=== PATIENT | female | born 1995 | race Caucasian/White ===

== ENCOUNTER 2023-04-22 18:08 | Emergency (ER) | payer OTHER, SELFPAY ==
--- NOTE | ~2023-04-22 | XR_ITS ---
EXAMINATION: XR CHEST CLINICAL INFORMATION: Reason for Exam chest tightness COMPARISON: Chest radiograph 07/25/2012 TECHNIQUE: 2 views of the chest FINDINGS: Lines and tubes: Upper abdominal surgical clips. Clear lungs. No pleural effusion. No pneumothorax. Normal cardiomediastinal silhouette. XR/XR chest 2V IMPRESSION: * Clear lungs.
--- NOTE | ~2023-04-22 | CT_ITS ---
EXAMINATION: CT ABDOMEN AND PELVIS WITHOUT CONTRAST CLINICAL INFORMATION: Abdominal pain. Rule out kidney disease. COMPARISON: Ultrasound abdomen 04/24/2015 CT abdomen pelvis without contrast 09/17/2012 TECHNIQUE: Multidetector volumetric imaging was performed from the superior aspect of the liver through the pubic symphysis. Sagittal and coronal reformatted images were obtained on the technologist's workstation. This CT examination was performed using dose optimization techniques as appropriate, variously including the following: *Automated exposure control *Adjustment of mA and/or kV according to patient size (this includes techniques or standardized protocols for targeted exams where dose is matched to indication/reason for exam; i.e. extremities or head) *Use of iterative reconstruction technique DLP: 724 mGy-cm FINDINGS: LUNG BASES: The visualized lung bases are unremarkable. LIVER, GALLBLADDER, AND BILIARY TREE: The liver is normal in size, shape, and attenuation. No focal hepatic lesion or biliary ductal dilatation is present. The gallbladder has been surgically removed. PANCREAS: Unremarkable. SPLEEN: Unremarkable. ADRENAL GLANDS: Unremarkable. KIDNEYS AND URETERS: The kidneys are normal in size, shape, and attenuation. No hydronephrosis, hydroureter, or calculi seen. No perinephric stranding. BLADDER: Unremarkable. GASTROINTESTINAL TRACT: There is moderate scattered stool and gas seen throughout the colon without significant distention. The small bowel loops are normal caliber. Appendix is normal caliber. ABDOMINAL WALL: There is mild skin thickening of the umbilicus but no evidence of hernia. LYMPH NODES: Normal. VASCULAR: Unremarkable. PELVIC VISCERA: The uterus is anteverted and appears unremarkable. It seems left ovary lies on the top of the body of the uterus on sagittal view. No free fluid. OSSEOUS STRUCTURES: Unremarkable. CT/CT abdomen pelvis wo IV con IMPRESSION: 1. No acute intra-abdominal process seen. 2. Mild constipation. 3. No radiopaque urolith or hydroureteronephrosis. . Fleischner guidelines were followed.
[2023-04-22 18:20] VITALS: BP 139/89; PULSE 88; RESP 18; TEMP 36.7; O2SAT 98; BMI 40.2
--- NOTE | 2023-04-22 18:21 | ED_ITS ---
HPI - General Adult General Chief complaint: Abdominal Pain Stated complaint: Stomach pain/diff breathing Time Seen by Provider: 04/22/23 19:55 Source: patient Mode of arrival: ambulatory Limitations: no limitations History of Present Illness HPI narrative: 27-year-old female came in for evaluation of epigastric pain for 2 days pain has been constant, feels like acid reflux, no clear relieving factor or aggravating factor. Normal bowel movement yesterday patient passing flatus. Patient also with history of asthma been having wheezing and tightness of the chest. Related Data Previous Rx's Medication Instructions Recorded nitrofurantoin 100 mg PO Q12H 7 days #14 caps 04/23/23 monohydrate/macrocrystals 100 mg capsule (Macrobid) omeprazole 40 mg capsule,delayed 40 mg PO DAILY #20 caps 04/23/23 release Allergies Allergy/AdvReac Type Severity Reaction Status Date / Time amoxicillin [AMOXICILLIN] Allergy Unknown RASH Verified 04/22/23 22:12 Penicillins [PENICILLINS] Allergy Unknown RASH Verified 04/22/23 22:12 acetaminophen [From Percocet] AdvReac Hallucinati Verified 04/22/23 18:23 ons clindamycin AdvReac Rash Verified 04/22/23 18:23 oxycodone [From Percocet] AdvReac Hallucinati Verified 04/22/23 18:23 ons Review of Systems Review of Systems: All other systems are reviewed and are negative Constitutional: Reports as per HPI and Reports no additional constitutional complaints Eyes: Reports as per HPI and Reports no additional eye complaints Reports system reviewed and no additional complaints, except as documented Cardiovascular: Reports as per HPI and Reports no additional cardiovascular complaints Respiratory: Reports as per HPI and Reports no additional respiratory complaints Gastrointestinal: Reports as per HPI and Reports no additional gastrointestinal complaints Genitourinary: Reports no additional female genitourinary complaints Musculoskeletal: Reports no additional musculoskeletal complaints Skin/Breast: Reports system reviewed and no additional complaints, except as docu Psychiatric: Reports no additional psychiatric complaints Endocrine: Reports no additional endocrine complaints Hematologic/Lymphatic: Reports no additional hematologic/lymphatic complaints Allergic/Immunologic: Reports no additional allergic/immunologic complaints Reports system reviewed and no additional complaints, except as documented and Reports Abnormal speech present [facility] Social History Social History Advance Directives: No Advance Directives Information Provided: No Patient : No Physical Exam ED Vital Signs: Vital Signs - 24 hr 04/22/23 18:20 04/22/23 19:55 04/22/23 22:11 Temperature 98.0 F Pulse Rate 88 79 Respiratory Rate 18 18 19 Blood Pressure 139/89 142/90 H Pulse Oximetry 98 98 Oxygen Delivery Method Room Air 04/22/23 22:34 Temperature Pulse Rate 100 Respiratory Rate 16 Blood Pressure 131/79 Pulse Oximetry 99 Oxygen Delivery Method Room Air BMI result Body Mass Index 40.2 Vital signs have been reviewed as appeared to be correct. Blood pressure normal. Heart rate normal. Respiration rate normal. Temperature normal. Oxygen saturation normal. Appearance: Alert. Oriented X3. No acute distress. Head: Normal external exam. Normocephalic. Atraumatic. No Hall signs noted. No raccoon eyes noted Eyes: PERRLA. EOMI. Conjunctiva and sclera normal. Eyelids normal. ENT: TM's Normal. Pharynx normal. Uvula midline. Moist mucous membranes. No trismus noted. No drooling noted. No muffled voice noted. Neck: Normal inspection. Neck supple. FROM. No adenopathy. Thyroid Normal. No meningeal signs. No neck mass noted. CVS: Normal heart rate and rhythm. Heart sound normal. No murmurs noted. Pulses normal throughout. Respiratory: No respiratory distress. Painless inspiration. Breath sounds normal. Mild diffuse expiratory wheezing with prolonged expiration. Chest nontender. No accessory muscle usage noted or decreased air movement noted. Abdomen: Soft, mild epigastric tenderness, no rebound tenderness, no guarding. Bowel sounds normal in all 4 quadrants. No distention noted. No organomegaly noted. No visible injury noted. Back: No CVA tenderness. Full range of motion noted. Skin: Skin warm and dry. Normal skin color. Normal skin turgor. No rashes/lesions/lacerations noted. Extremities: No lower extremity edema. Extremities exhibit normal range of motion. Extremities nontender. Neuro: Oriented X 3. Cranial nerve exam: II-XII are grossly intact No motor deficit. No sensory deficit. Reflexes normal. Course Course Course Narrative: This is an RME: Additional HPI, ROS, PE not included below will be deferred to primary provider. This is a [id number]-female, with a history of asthma, presenting to the emergency department with complaints of epigastric pain x 2 days. No fevers or chills. Also endorsing chest tightness and epigastric tenderness is making her asthma exacerbated. +SOB. VSS Plan: Labs, EKG, CXR ordered Reevaluation(s) Reevaluation #1: Will discharge the patient on Macrobid for UTI, Prilosec for gastritis. Medications Administered Discontinued Medications Generic Name Dose Route Start Last Admin Trade Name Freq PRN Reason Stop Dose Admin Al Hydroxide/Mg Hydroxide 30 ml 04/22/23 20:07 04/22/23 20:37 Magnesium Hydrox/Alum Hydrox 30 Ml Oral.Susp PO 04/22/23 20:08 30 ml ONCE ONE Administration Albuterol Sulfate 5 mg 04/22/23 20:06 04/22/23 20:48 Albuterol Sulfate (0.083%) 2.5 Mg/3 Ml Vial.Neb INHALE 04/22/23 20:07 5 mg ONCE ONE Administration Albuterol/Ipratropium 3 ml 04/22/23 20:06 04/22/23 20:48 Albuterol/Iprat 2.5/0.5mg 3 Ml Ampul.Neb INHALE 04/22/23 20:07 3 ml ONCE ONE Administration Famotidine 20 mg 04/22/23 20:07 04/22/23 20:37 Famotidine/Pf 20 Mg/2 Ml Vial IVPUSH 04/22/23 20:08 20 mg ONCE ONE Administration Sodium Chloride 1,000 mls @ 999 mls/hr 04/22/23 20:08 04/22/23 22:00 Ns IV 04/22/23 21:08 Infused .Q1H1M ONE Infusion Morphine Sulfate 1 mg 04/22/23 22:04 04/22/23 22:11 Morphine Sulfate 2 Mg/Ml Cartridge IVPUSH 04/22/23 22:05 1 mg ONCE ONE Administration Protocol Nitrofurantoin Macrocrystals 100 mg 04/23/23 00:23 04/23/23 00:29 Nitrofurantoin Monohyd/M-Cryst 100 Mg Capsule PO 04/23/23 00:24 100 mg ONCE ONE Administration Medical Decision Making Differential Diagnosis Differential Diagnoses: The differential diagnosis associated with the presentation includes (Asthma, gastritis, colitis, diverticulitis, appendicitis, electrolyte abnormalities, severe dehydration, severe anemia.) Admission/Observation Consideration of admission/observation: Escalation of care including admission/observation considered Lab Data MDM Lab Attestation statement: I reviewed the patient's lab results. 04/22/23 19:07 04/22/23 19:07 Labs: Lab Results 04/22/23 04/22/23 04/22/23 Range/Units 19:07 19:07 19:07 WBC 9.6 (4.8-10.8) X10*3/uL RBC 4.89 (4.20-5.50) X10*6/uL Hgb 14.1 (12.0-16.0) g/dl Hct 40.8 (37.0-47.0) % MCV 83.4 (80.0-98.0) fL MCH 28.8 (27.0-33.0) pg MCHC 34.6 (31.0-35.0) g/dl RDW 13.2 (11.0-16.0) % Plt Count 344 (160-400) X10*3/uL MPV 9.0 L (9.4-12.3) fL Immature Gran % (Auto) 0.5 H (0.0-0.4) % Neut % (Auto) 48.7 (45-73) % Lymph % (Auto) 38.9 (20-40) % [place] % (Auto) 8.5 (2-11) % Eos % (Auto) 2.4 (0-4) % Baso % (Auto) 1.0 (0-2) % Lymph # (Auto) 3.8 (1.2-4.9) X10*3/uL [place] # (Auto) 0.8 (0.1-1.2) X10*3/uL Eos # (Auto) 0.2 (0.0-0.4) X10*3/uL Baso # (Auto) 0.1 (0.0-0.2) X10*3/uL Abs Immat Gran (auto) 0.05 H (0.00-0.03) X10*3/uL Absolute Neuts (auto) 4.7 (2.0-8.3) x10*3/uL Absolute Nucleated RBC 0.000 (0.0-0.012) X10*3/uL Nucleated RBC % (auto) 0.0 (0.0-0.2) /100WBC Sodium 139 (135-145) mmol/L Potassium 3.7 (3.3-5.1) mmol/L Chloride 107 (96-108) mmol/L Carbon Dioxide 24 (22-29) mmol/L Anion Gap 12 (12-20) BUN 11 (9-16) mg/dL Creatinine 0.72 (0.5-1.4) mg/dL Estim Creat Clear Calc 112.9 Estimated GFR > 60 Random Glucose 85 (60-115) mg/dL Calcium 8.9 (8.4-10.2) mg/dL Total Bilirubin 0.5 (0.0-1.0) mg/dL Direct Bilirubin 0.1 (0.0-0.5) mg/dL AST 19 (5-31) U/L ALT 22 (0-31) U/L Alkaline Phosphatase 68 (39-117) U/L Troponin I High Sens < 2.7 (<3.5-17.0) ng/L Total Protein 7.6 (6.5-8.0) g/dL Albumin 4.3 (3.5-5.0) g/dL Lipase 14 (8-78) U/L Urine Color Urine Appearance Urine pH (5.0-9.0) Ur Specific [place] (1.005-1.025) Urine Protein (Neg-Trace) mg/dL Urine Glucose (UA) (Negative) mg/dL Urine Ketones (Negative) mg/dL Urine Blood (Negative) Urine Nitrite (Negative) Ur Leukocyte Esterase (Negative) Urine RBC (0-2) /HPF Urine WBC (0-5) /HPF Ur Squamous Epith Cells (0-2) /HPF Urine Bacteria (None Seen) Hyaline Casts (0-2) /LPF Urine Test (NEGATIVE) 04/22/23 04/22/23 Range/Units 20:01 20:01 WBC (4.8-10.8) X10*3/uL RBC (4.20-5.50) X10*6/uL Hgb (12.0-16.0) g/dl Hct (37.0-47.0) % MCV (80.0-98.0) fL MCH (27.0-33.0) pg MCHC (31.0-35.0) g/dl RDW (11.0-16.0) % Plt Count (160-400) X10*3/uL MPV (9.4-12.3) fL Immature Gran % (Auto) (0.0-0.4) % Neut % (Auto) (45-73) % Lymph % (Auto) (20-40) % [place] % (Auto) (2-11) % Eos % (Auto) (0-4) % Baso % (Auto) (0-2) % Lymph # (Auto) (1.2-4.9) X10*3/uL [place] # (Auto) (0.1-1.2) X10*3/uL Eos # (Auto) (0.0-0.4) X10*3/uL Baso # (Auto) (0.0-0.2) X10*3/uL Abs Immat Gran (auto) (0.00-0.03) X10*3/uL Absolute Neuts (auto) (2.0-8.3) x10*3/uL Absolute Nucleated RBC (0.0-0.012) X10*3/uL Nucleated RBC % (auto) (0.0-0.2) /100WBC Sodium (135-145) mmol/L Potassium (3.3-5.1) mmol/L Chloride (96-108) mmol/L Carbon Dioxide (22-29) mmol/L Anion Gap (12-20) BUN (9-16) mg/dL Creatinine (0.5-1.4) mg/dL Estim Creat Clear Calc Estimated GFR Random Glucose (60-115) mg/dL Calcium (8.4-10.2) mg/dL Total Bilirubin (0.0-1.0) mg/dL Direct Bilirubin (0.0-0.5) mg/dL AST (5-31) U/L ALT (0-31) U/L Alkaline Phosphatase (39-117) U/L Troponin I High Sens (<3.5-17.0) ng/L Total Protein (6.5-8.0) g/dL Albumin (3.5-5.0) g/dL Lipase (8-78) U/L Urine Color Yellow Urine Appearance Clear Urine pH 6.0 (5.0-9.0) Ur Specific [place] 1.025 (1.005-1.025) Urine Protein Trace (Neg-Trace) mg/dL Urine Glucose (UA) Negative (Negative) mg/dL Urine Ketones Negative (Negative) mg/dL Urine Blood Moderate (2+) H (Negative) Urine Nitrite Negative (Negative) Ur Leukocyte Esterase Negative (Negative) Urine RBC 0-2 (0-2) /HPF Urine WBC 6-10 H (0-5) /HPF Ur Squamous Epith Cells 11-20 (0-2) /HPF Urine Bacteria 2+ (None Seen) Hyaline Casts 0-2 (0-2) /LPF Urine Test NEGATIVE (NEGATIVE) Independent Interpretation I performed an independent interpretation of an: Plain X-Ray (Chest: Clear lungs.) and CT Scan (Abdomen pelvis:1. No acute intra-abdominal process seen. 2. Mild constipation. 3. No radiopaque urolith or hydroureteronephrosis. . ) Radiology Impression Discussion of test interpretation with radiology: I have reviewed the radiologist's reading. Discharge Plan Discharge Clinical Impression: Gastritis, UTI (urinary tract infection), Asthma attack, Abdominal pain Patient Disposition: Home, Self-Care Instructions: Gastritis (ED), Urinary Tract Infection in Women (ED) Prescriptions: New nitrofurantoin monohyd/m-cryst [Macrobid] 100 mg capsule 100 mg PO Q12H 7 Days Qty: 14 0RF Rx Instructions: must administer with a meal/food omeprazole 40 mg capsule,delayed release(DR/EC) 40 mg PO DAILY Qty: 20 0RF Stand Alone Forms: Work/School Release Interventions: ED Discharge Assessment Last Done: 04/23/23 00:35 Discharge Date/Time: 04/23/23 00:35
--- NOTE | 2023-04-22 18:53 | ECG_ITS ---
Test Reason : CHEST PAIN Blood Pressure : / mmHG Vent. Rate : 086 BPM Atrial Rate : 086 BPM P-R Int : 132 ms QRS Dur : 078 ms QT Int : 368 ms P-R-T Axes : 028 -02 017 degrees QTc Int : 440 ms Normal sinus rhythm Minimal voltage criteria for LVH, may be normal variant ( R in aVL ) Septal infarct , age undetermined Abnormal ECG When compared with ECG of 09-JAN-2016 21:44, Septal infarct is now Present Referred By: Kassidy Torrez Electronically Signed By:LOUIS JOY
--- NOTE | 2023-04-22 19:16 | MHC.EDTECH ---
charting error disreguard boaz ekg 18:29 RN aware
[2023-04-22 19:20] LABS: MANUAL DIFF FLAG NO
[2023-04-22 19:22] LABS: Basophils Absolute Auto 0.1 X10*3/uL (0.0-0.2); Eosinophils Absolute Auto 0.2 X10*3/uL (0.0-0.4); Eosinophils Percent Auto 2.4 % (0-4); Hematocrit 40.8 % (37.0-47.0); Hemoglobin 14.1 g/dl (12.0-16.0); Imm Gran Abs Auto 0.05 X10*3/uL (0.00-0.03); Imm Gran Pct Auto 0.5 % (0.0-0.4); Lymphocytes Absolute Auto 3.8 X10*3/uL (1.2-4.9); Lymphocytes Percent Auto 38.9 % (20-40); Mean Corpuscular HGB Conc 34.6 g/dl (31.0-35.0); Mean Corpuscular Hemoglobin 28.8 pg (27.0-33.0); Mean Corpuscular Volume 83.4 fL (80.0-98.0); Monocytes Absolute Auto 0.8 X10*3/uL (0.1-1.2); Monocytes Percent Auto 8.5 % (2-11); Neutrophils Absolute Auto 4.7 x10*3/uL (2.0-8.3); Neutrophils Percent Auto 48.7 % (45-73); Platelet Count 344 X10*3/uL (160-400); Red Blood Count 4.89 X10*6/uL (4.20-5.50); Red Cell Distribution Width 13.2 % (11.0-16.0); White Blood Count 9.6 X10*3/uL (4.8-10.8)
[2023-04-22 19:36] LABS: Alanine Aminotransferase 22 U/L (0-31); Albumin Level 4.3 g/dL (3.5-5.0); Alkaline Phosphatase 68 U/L (39-117); Anion Gap 12 (12-20); Aspartate Amino Transferase 19 U/L (5-31); Bilirubin Direct 0.1 mg/dL (0.0-0.5); Bilirubin Total 0.5 mg/dL (0.0-1.0); Blood Urea Nitrogen 11 mg/dL (9-16); Calcium 8.9 mg/dL (8.4-10.2); Carbon Dioxide 24 mmol/L (22-29); Chloride 107 mmol/L (96-108); Creatinine Clr Calc Pharmacy 112.9; Estimated Glomerular Filt Rate > 60; Glucose Random 85 mg/dL (60-115); Lipase 14 U/L (8-78); Potassium 3.7 mmol/L (3.3-5.1); Sodium 139 mmol/L (135-145); Total Protein 7.6 g/dL (6.5-8.0)
[2023-04-22 19:45] LABS: Troponin-I High Sensitivity < 2.7 ng/L (<3.5-17.0)
[2023-04-22 19:55] VITALS: BP 142/90; PULSE 79; RESP 18; O2SAT 98
[2023-04-22 20:22] LABS: Appearance Urine Clear; Color Urine Yellow; Glucose Urine UA Negative (Negative); Leukocyte Esterase Urine Negative (Negative); Nitrite Urine Negative (Negative); Specific Gravity - Urine 1.025 (1.005-1.025); UMIC TRIGGER UACC YES; Urine Blood Moderate (2+) (Negative); Urine Ketones Negative (Negative); Urine Protein Trace mg/dL (Neg-Trace)
[2023-04-22 20:28] LABS: Bacteria Urine 2+ (None Seen); Hyaline Casts Urine 0-2 /LPF (0-2); RBC Urine 0-2 /HPF (0-2); UACC Culture Trigger YES
[2023-04-22] MEDS: Famotidine/PF 20 MG/2 ML VIAL IVPUSH (20:37)
[2023-04-22] MEDS: Magnesium Hydrox/Alum Hydrox 30 ML ORAL.SUSP PO (20:37)
[2023-04-22] MEDS: 0.9 % Sodium Chloride 1,000 ML 999 ML IV (20:38)
[2023-04-22] MEDS: Albuterol Sulfate (0.083%) 2.5 MG/3 ML VIAL.NEB 5 MG INHALE (20:48)
[2023-04-22] MEDS: Albuterol/Iprat 2.5/0.5MG 3 ML AMPUL.NEB INHALE (20:48)
[2023-04-22 21:23] LABS: UPreg QC Valid YES; Urine Pregnancy NEGATIVE (NEGATIVE)
[2023-04-22 22:11] VITALS: RESP 19
[2023-04-22] MEDS: Morphine Sulfate 2 MG/ML CARTRIDGE 1 MG IVPUSH (22:11)
[2023-04-22 22:34] VITALS: BP 131/79; PULSE 100; RESP 16; O2SAT 99
[2023-04-23] MEDS: Nitrofurantoin Monohyd/M-Cryst 100 MG CAPSULE PO (00:29)
== END 2023-04-23 00:35 | disposition home or self-care (01) ==
PROVIDERS: Physician Assistant Medical; Emergency Provider Emergency Medicine; PCP Nurse Practitioner Family
DX: K29.70 Gastritis, unspecified, without bleeding (principal); N39.0 Urinary tract infection, site not specified; J45.909 Unspecified asthma, uncomplicated; R10.13 Epigastric pain
CPT/HCPCS: 36415; 71046; 74176; 80048; 80076; 81001; 81025; 83690; 84484; 85025; 87086; 93005; 96361; 96374; 96375; 99284; 99285; J2270

== ENCOUNTER 2023-07-11 22:01 | Emergency (ER) | payer OTHER, SELFPAY ==
[2023-07-11 22:10] VITALS: BP 133/80; PULSE 99; RESP 18; TEMP 36.7; O2SAT 100; BMI 41.1
[2023-07-11 22:40] LABS: IDNOW Serial# 08D9AD1C; Strep A Nucleic Acid Negative (Negative)
[2023-07-11 22:41] LABS: COVID-19 Test Negative (Negative); IDNOW Serial# BCCEAD1C
--- NOTE | 2023-07-11 23:04 | ED.GENADULT ---
HPI - General Adult General Chief complaint: General Medical Stated complaint: throat pain Time Seen by Provider: 07/11/23 22:46 Source: patient Mode of arrival: ambulatory Limitations: no limitations History of Present Illness HPI narrative: Patient having sore throat since yesterday pain to swallow noticed swelling of the left side of the face also no fever no chills no dental problem patient was diagnosed with strep throat 1 month ago and took antibiotics Related Data Previous Rx's Medication Instructions Recorded nitrofurantoin 100 mg PO Q12H 7 days #14 caps 04/23/23 monohydrate/macrocrystals 100 mg capsule (Macrobid) omeprazole 40 mg capsule,delayed 40 mg PO DAILY #20 caps 04/23/23 release cefuroxime axetil 500 mg tablet 500 mg PO BID 7 days #14 tabs 07/11/23 ibuprofen 600 mg tablet 600 mg PO Q6H PRN fever or pain 07/11/23 #30 tabs Allergies Allergy/AdvReac Type Severity Reaction Status Date / Time amoxicillin [AMOXICILLIN] Allergy Unknown RASH Verified 07/11/23 22:10 Penicillins [PENICILLINS] Allergy Unknown RASH Verified 07/11/23 22:10 clindamycin AdvReac Rash Verified 07/11/23 22:10 oxycodone [From Percocet] AdvReac Hallucinati Verified 07/11/23 22:10 ons Review of Systems Review of Systems: Yes all other systems are reviewed and are negative [facility] Social History Social History Advance Directives: No Advance Directives Information Provided: No Physical Exam ED Vital Signs: Vital Signs - 24 hr 07/11/23 22:10 Temperature 98.1 F Pulse Rate 99 Respiratory Rate 18 Blood Pressure 133/80 Pulse Oximetry 100 Oxygen Delivery Method Room Air BMI result Body Mass Index 41.1 Appearance: Alert. Oriented X3. No acute distress. ENT: Pharynx slightly erythematous no exudates tonsils normal. Oral Mucosa moist no sinus tenderness tympanic membrane intact Neck: Normal inspection. Neck supple. CVS: Normal heart rate and rhythm. Pulses normal. Respiratory: No respiratory distress. Equal air entry bilateral, no wheezing/rales/rhonchi Abdomen: Soft and nontender. Medications Administered Discontinued Medications Generic Name Dose Route Start Last Admin Trade Name Freq PRN Reason Stop Dose Admin Cefuroxime Axetil 500 mg 07/11/23 22:59 07/11/23 23:09 Cefuroxime Axetil 500 Mg Tablet PO 07/11/23 23:00 500 mg ONCE ONE Administration Ibuprofen 600 mg 07/11/23 23:00 07/11/23 23:09 Ibuprofen 600 Mg Tablet PO 07/11/23 23:01 600 mg ONCE ONE Administration Medical Decision Making Lab Data MDM Lab Attestation statement: I reviewed the patient's lab results. Labs: Lab Results 07/11/23 Range/Units 22:16 COVID-19 ([facility]) Negative (Negative) COVID-19 Clin Com See Note S. pyogenes GrpA JASON Negative (Negative) Discharge Plan Discharge Clinical Impression: Acute pharyngitis Patient Disposition: Home, Self-Care Instructions: Pharyngitis (ED) Additional Instructions: Saline gargles as advised Antibiotic as adv Ibuprofen for pain Follow-up with PCP as needed Prescriptions: New ibuprofen 600 mg tablet 600 mg PO Q6H PRN (Reason: fever or pain) Qty: 30 0RF cefuroxime axetil 500 mg tablet 500 mg PO BID 7 Days Qty: 14 0RF No Action nitrofurantoin monohyd/m-cryst [Macrobid] 100 mg capsule 100 mg PO Q12H 7 Days Qty: 14 0RF Rx Instructions: must administer with a meal/food omeprazole 40 mg capsule,delayed release(DR/EC) 40 mg PO DAILY Qty: 20 0RF Stand Alone Forms: Work/School Release Interventions: ED Discharge Assessment Last Done: 07/11/23 23:17 Discharge Date/Time: 07/11/23 23:17
[2023-07-11] MEDS: Ibuprofen 600 MG TABLET PO (23:09)
--- NOTE | 2023-07-11 23:10 | PC.NURSE ---
ptmedicated per mar
== END 2023-07-11 23:17 | disposition home or self-care (01) ==
PROVIDERS: Emergency Provider Internal Medicine; PCP Nurse Practitioner Family
DX: J02.9 Acute pharyngitis, unspecified (principal); Z20.822 Contact with and (suspected) exposure to COVID-19; Z20.828 Contact with and (suspected) exposure to other viral communicable diseases; Z79.899 Other long term (current) drug therapy
CPT/HCPCS: 87635; 87651; 99283

== ENCOUNTER 2023-10-12 14:33 | Emergency (ER) | payer MEDICAID, OTHER, SELFPAY ==
--- NOTE | ~2023-10-12 | XR_ITS ---
EXAMINATION: XR CHEST 4:25 PM CLINICAL INFORMATION: Chest pain COMPARISON: 04/22/2023 TECHNIQUE: Frontal view of the chest was obtained. FINDINGS: No significant abnormality is noted involving the heart, lungs, mediastinum, bony thorax or soft tissues. XR/XR chest 1V IMPRESSION: Unremarkable examination.
--- NOTE | 2023-10-12 14:38 | ECG_ITS ---
Test Reason : cp,dizzy Blood Pressure : / mmHG Vent. Rate : 104 BPM Atrial Rate : 104 BPM P-R Int : 132 ms QRS Dur : 080 ms QT Int : 332 ms P-R-T Axes : 055 -05 015 degrees QTc Int : 436 ms Sinus tachycardia Minimal voltage criteria for LVH, may be normal variant ( R in aVL ) Borderline ECG When compared with ECG of 22-APR-2023 18:56, Criteria for Septal infarct are no longer Present Referred By: Generic ED Physician Electronically Signed By:Tobias Liu
[2023-10-12 15:17] VITALS: BP 117/82; PULSE 112; RESP 18; TEMP 36.9; O2SAT 97; BMI 41.2
--- NOTE | 2023-10-12 15:17 | ED_ITS ---
HPI - Chest Pain General Chief Complaint: Nausea/Vomiting/Diarrhea Stated Complaint: Chest pain, dizziness, vomiting Time Seen by Provider: 10/12/23 22:50 History of Present Illness HPI narrative: The patient says that she has had some mild dizziness for the last week. She went to see her PCP a week ago but no particular diagnosis was made. The patient says she has had vertigo in the past. Patient says that last night around midnight she woke up and felt quite dizzy. She went to the bathroom and felt very dizzy. She then had projectile vomiting and diarrhea. She continued to feel unwell throughout the night and today. Ultimately she went to an urgent care today and was referred to the emergency room. The patient says that she has had a history of rapid heart rate since having COVID. The patient has a Nexplanon device. Related Data Previous Rx's Medication Instructions Recorded nitrofurantoin 100 mg PO Q12H 7 days #14 caps 04/23/23 monohydrate/macrocrystals 100 mg capsule (Macrobid) omeprazole 40 mg capsule,delayed 40 mg PO DAILY #20 caps 04/23/23 release cefuroxime axetil 500 mg tablet 500 mg PO BID 7 days #14 tabs 07/11/23 ibuprofen 600 mg tablet 600 mg PO Q6H PRN fever or pain 07/11/23 #30 tabs ibuprofen 600 mg tablet 600 mg PO Q6H PRN pain #14 tabs 10/13/23 meclizine 25 mg tablet 25 mg PO TID PRN dizziness #14 tabs 10/13/23 Allergies Allergy/AdvReac Type Severity Reaction Status Date / Time amoxicillin [AMOXICILLIN] Allergy Unknown RASH Verified 10/12/23 15:17 Penicillins [PENICILLINS] Allergy Unknown RASH Verified 10/12/23 15:17 clindamycin AdvReac Rash Verified 10/12/23 15:17 oxycodone [From Percocet] AdvReac Hallucinati Verified 10/12/23 15:17 ons Review of Systems 2 Review of Systems: Yes all other systems are reviewed and are negative [facility] Social History Social History Smoked in Last 30 Days: No Use of substances other than those prescribed or required for medical reasons: No Advance Directives: No Advance Directives Information Provided: No Patient : No Physical Exam 2 Vital Signs: Vital Signs: Last Vital Signs Temp 98.6 F 10/13/23 04:16 Pulse 96 10/13/23 07:47 Resp 16 10/13/23 07:47 BP 124/68 10/13/23 07:47 Pulse Ox 98 10/13/23 07:47 O2 Del Method Room Air 10/13/23 07:47 BMI result Body Mass Index 41.2 Const: Other: The patient is awake and alert. The patient does not appear obviously acutely ill or toxic. HEENT: Other: Face is symmetrical. Mucous membranes moist. Eyes: Other: Pupils are round equal, extraocular movements are intact. No clear nystagmus. Neck: Other: Neck is supple. No masses. Resp: Other: Breath sounds are clear bilaterally. No increased work of breathing. Cardio: Other: The patient has regular rate and rhythm with no murmur Skin: Other: Skin is dry and unremarkable Neuro: Other: The patient is awake and alert, oriented and appropriate. Eye movements are normal. No clear nystagmus. Face is symmetrical. Speech is clear. Finger- nose is normal. Moving all 4 extremities normally. She seems grossly neurologically intact Extrem: Other: No calf swelling or tenderness. No peripheral edema Course Course Course Narrative: RME: 27yo F w/no sig PMHx c/o LICEA x1 week with bilateral cerumen impaction noted by PCP, and now w/lightheadedness/dizziness, CP x yesterday w/assoc N/V and syncopal episode in shower. Denies head trauma. Also reports diarrhea. +sick contacts EKH, Labs, UA, Viral testing Full HPI, ROS and PE to be performed by primary ED provider. Medications Administered Discontinued Medications Generic Name Dose Route Start Last Admin Trade Name Freq PRN Reason Stop Dose Admin Diphenhydramine HCl 25 mg 10/12/23 23:02 10/13/23 00:46 Diphenhydramine Hcl 50 Mg/Ml Vial IVPUSH 10/12/23 23:03 25 mg ONCE ONE Administration Sodium Chloride 1,000 mls @ 999 mls/hr 10/12/23 23:15 10/13/23 01:50 Ns IV 10/13/23 00:15 Infused .Q1H1M ALICIA Infusion Sodium Chloride 1,000 mls @ 999 mls/hr 10/13/23 01:45 10/13/23 02:55 Ns IV 10/13/23 02:45 Infused .Q1H1M ALICIA Infusion Ketorolac Tromethamine 15 mg 10/13/23 07:01 10/13/23 07:55 Ketorolac Tromethamine 15 Mg/Ml Vial IVPUSH 10/13/23 07:02 15 mg ONCE ONE Administration Medical Decision Making Medical Decision Making MDM Narrative: Patient presents with an episode of dizziness that was also associated with vomiting and diarrhea. She reports a history of vertigo in the past. Her neurological exam is unremarkable. No clear nystagmus. She was treated with IV diphenhydramine and IV fluids. She fell asleep for a long time. When she woke up her dizziness was better but she was complaining of a headache. She was like. I think she may be discharged. She should follow up with the regular doctor. She was prescribed meclizine. Lab Data 10/12/23 15:38 10/12/23 15:38 Labs: Lab Results 10/12/23 10/12/23 Range/Units 15:38 22:39 WBC 9.5 (4.8-10.8) X10*3/uL RBC 4.89 (4.20-5.50) X10*6/uL Hgb 15.0 (12.0-16.0) g/dl Hct 42.7 (37.0-47.0) % MCV 87.3 (80.0-98.0) fL MCH 30.7 (27.0-33.0) pg MCHC 35.1 H (31.0-35.0) g/dl RDW 12.2 (11.0-16.0) % Plt Count 279 (160-400) X10*3/uL MPV 9.0 L (9.4-12.3) fL Immature Gran % (Auto) 0.4 (0.0-0.4) % Neut % (Auto) 80.8 H (45-73) % Lymph % (Auto) 11.0 L (20-40) % [place] % (Auto) 7.2 (2-11) % Eos % (Auto) 0.4 (0-4) % Baso % (Auto) 0.2 (0-2) % Lymph # (Auto) 1.1 L (1.2-4.9) X10*3/uL [place] # (Auto) 0.7 (0.1-1.2) X10*3/uL Eos # (Auto) 0.0 (0.0-0.4) X10*3/uL Baso # (Auto) 0.0 (0.0-0.2) X10*3/uL Abs Immat Gran (auto) 0.04 H (0.00-0.03) X10*3/uL Absolute Neuts (auto) 7.7 (2.0-8.3) x10*3/uL Absolute Nucleated RBC 0.000 (0.0-0.012) X10*3/uL Nucleated RBC % (auto) 0.0 (0.0-0.2) /100WBC Sodium 137 (135-145) mmol/L Potassium 3.5 (3.3-5.1) mmol/L Chloride 104 (96-108) mmol/L Carbon Dioxide 24 (22-29) mmol/L Anion Gap 13 (12-20) BUN 11 (9-16) mg/dL Creatinine 0.74 (0.5-1.4) mg/dL Estim Creat Clear Calc 111.4 Estimated GFR > 60 Random Glucose 87 (60-115) mg/dL Calcium 9.3 (8.4-10.2) mg/dL Magnesium 1.9 (1.6-2.6) mg/dL Total Bilirubin 1.1 H (0.0-1.0) mg/dL Direct Bilirubin 0.3 (0.0-0.5) mg/dL AST 17 (5-31) U/L ALT 18 (0-31) U/L Alkaline Phosphatase 61 (39-117) U/L Troponin I High Sens < 2.7 (<3.5-17.0) ng/L C-Reactive Protein 2.69 H (< or = 0.50) mg/dL Total Protein 7.7 (6.5-8.0) g/dL Albumin 4.4 (3.5-5.0) g/dL Urine Color Dark Yellow Urine Appearance Cloudy Urine pH 5.5 (5.0-9.0) Ur Specific [place] 1.025 (1.005-1.025) Urine Protein Trace (Neg-Trace) mg/dL Urine Glucose (UA) Negative (Negative) mg/dL Urine Ketones 15 (Negative) mg/dL Urine Blood Trace H (Negative) Urine Nitrite Negative (Negative) Ur Leukocyte Esterase Negative (Negative) Urine RBC 11-20 H (0-2) /HPF Urine WBC 0-5 (0-5) /HPF Ur Squamous Epith Cells 11-20 (0-2) /HPF Urine Bacteria Trace (None Seen) Hyaline Casts 0-2 (0-2) /LPF Urine Test NEGATIVE (NEGATIVE) Influenza Type A (PCR) NEGATIVE (Negative) Influenza Type B (PCR) NEGATIVE (Negative) RSV RNA Qual (PCR) NEGATIVE (Negative) SARS-CoV-2 RNA (RT-PCR) NEGATIVE (Negative) S. pyogenes GrpA JASON Negative (Negative) Discharge Plan Discharge Clinical Impression: Dizziness, Headache Patient Disposition: Home, Self-Care Instructions: Dizziness (ED) Additional Instructions: Please rest and take it easy today. I have sent a prescription to your pharmacy for a drug called meclizine which she may use as needed for dizziness. I have also sent a prescription for ibuprofen which you may use for headache. Please follow-up with your regular doctor soon for recheck. Return to the emergency room if you feel significantly worse. Prescriptions: New meclizine 25 mg tablet 25 mg PO TID PRN (Reason: dizziness) Qty: 14 0RF ibuprofen 600 mg tablet 600 mg PO Q6H PRN (Reason: pain) Qty: 14 0RF No Action nitrofurantoin monohyd/m-cryst [Macrobid] 100 mg capsule 100 mg PO Q12H 7 Days Qty: 14 0RF Rx Instructions: must administer with a meal/food omeprazole 40 mg capsule,delayed release(DR/EC) 40 mg PO DAILY Qty: 20 0RF ibuprofen 600 mg tablet 600 mg PO Q6H PRN (Reason: fever or pain) Qty: 30 0RF cefuroxime axetil 500 mg tablet 500 mg PO BID 7 Days Qty: 14 0RF Referrals: Lola Camarena BILLER [Primary Care Provider] - (dizziness ) Stand Alone Forms: Work/School Release Interventions: ED Discharge Assessment Last Done: 10/13/23 08:53 Discharge Date/Time: 10/13/23 08:54
[2023-10-12 15:45] LABS: MANUAL DIFF FLAG NO
[2023-10-12 15:48] LABS: Basophils Percent Auto 0.2 % (0-2); Eosinophils Percent Auto 0.4 % (0-4); Hematocrit 42.7 % (37.0-47.0); Imm Gran Abs Auto 0.04 X10*3/uL (0.00-0.03); Imm Gran Pct Auto 0.4 % (0.0-0.4); Lymphocytes Absolute Auto 1.1 X10*3/uL (1.2-4.9); Mean Corpuscular HGB Conc 35.1 g/dl (31.0-35.0); Mean Corpuscular Hemoglobin 30.7 pg (27.0-33.0); Mean Corpuscular Volume 87.3 fL (80.0-98.0); Monocytes Absolute Auto 0.7 X10*3/uL (0.1-1.2); Monocytes Percent Auto 7.2 % (2-11); Neutrophils Absolute Auto 7.7 x10*3/uL (2.0-8.3); Neutrophils Percent Auto 80.8 % (45-73); Platelet Count 279 X10*3/uL (160-400); Red Blood Count 4.89 X10*6/uL (4.20-5.50); Red Cell Distribution Width 12.2 % (11.0-16.0); White Blood Count 9.5 X10*3/uL (4.8-10.8)
[2023-10-12 16:00] LABS: Alanine Aminotransferase 18 U/L (0-31); Albumin Level 4.4 g/dL (3.5-5.0); Alkaline Phosphatase 61 U/L (39-117); Anion Gap 13 (12-20); Aspartate Amino Transferase 17 U/L (5-31); Bilirubin Direct 0.3 mg/dL (0.0-0.5); Bilirubin Total 1.1 mg/dL (0.0-1.0); Blood Urea Nitrogen 11 mg/dL (9-16); Calcium 9.3 mg/dL (8.4-10.2); Carbon Dioxide 24 mmol/L (22-29); Chloride 104 mmol/L (96-108); Creatinine Clr Calc Pharmacy 111.4; Estimated Glomerular Filt Rate > 60; Glucose Random 87 mg/dL (60-115); IDNOW Serial# 08D9AD1C; Magnesium 1.9 mg/dL (1.6-2.6); Potassium 3.5 mmol/L (3.3-5.1); Sodium 137 mmol/L (135-145); Strep A Nucleic Acid Negative (Negative); Total Protein 7.7 g/dL (6.5-8.0)
[2023-10-12 16:10] LABS: Troponin-I High Sensitivity < 2.7 ng/L (<3.5-17.0)
[2023-10-12 16:23] LABS: Influenza A PCR NEGATIVE (Negative); Influenza B PCR NEGATIVE (Negative); Resp Syncy Virus RNA Qual PCR NEGATIVE (Negative); SARS COV2 PCR INHOUSE NEGATIVE (Negative)
[2023-10-12 22:35] VITALS: BP 109/74; PULSE 103; RESP 18; TEMP 36.9; O2SAT 97
[2023-10-12 22:50] LABS: Appearance Urine Cloudy; Color Urine Dark Yellow; Glucose Urine UA Negative (Negative); Leukocyte Esterase Urine Negative (Negative); Nitrite Urine Negative (Negative); PH 5.5 (5.0-9.0); Specific Gravity - Urine 1.025 (1.005-1.025); UMIC TRIGGER UACC YES; Urine Blood Trace (Negative); Urine Ketones 15 mg/dL (Negative); Urine Protein Trace mg/dL (Neg-Trace)
[2023-10-12 22:53] LABS: UPreg QC Valid YES; Urine Pregnancy NEGATIVE (NEGATIVE)
[2023-10-12 22:55] LABS: Bacteria Urine Trace (None Seen); Hyaline Casts Urine 0-2 /LPF (0-2); WBC Urine 0-5 /HPF (0-5)
[2023-10-12 23:03] LABS: C Reactive Protein 2.69 mg/dL (< or = 0.50)
[2023-10-13] VITALS (8 sets, daily range): BP systolic 102–124; BP diastolic 55–76; PULSE 83–105; RESP 16; TEMP 37; O2SAT 98
[2023-10-13] MEDS: 0.9 % Sodium Chloride 1,000 ML 999 ML IV ×2 (00:46→01:51)
[2023-10-13] MEDS: diphenhydrAMINE HCL 50 MG/ML VIAL 25 MG IVPUSH (00:46)
--- NOTE | 2023-10-13 06:37 | PC.NURSE ---
Pt alert and oriented. endorsing nausea vomiting. IV line placed in right upper arm. IV fluids infused. Plan of care ongoing
[2023-10-13] MEDS: Ketorolac Tromethamine 15 MG/ML VIAL IVPUSH (07:55)
== END 2023-10-13 08:54 | disposition home or self-care (01) ==
PROVIDERS: Physician Assistant; Emergency Provider Emergency Medicine; PCP Nurse Practitioner Family
DX: R51.9 Headache, unspecified (principal); R11.2 Nausea with vomiting, unspecified; R07.89 Other chest pain; R42 Dizziness and giddiness; Z20.822 Contact with and (suspected) exposure to COVID-19; Z20.828 Contact with and (suspected) exposure to other viral communicable diseases; Z79.899 Other long term (current) drug therapy
CPT/HCPCS: 0241U; 71045; 80048; 80076; 81001; 81025; 83735; 84484; 85025; 86140; 87651; 93005; 96361; 96374; 96375; 99285; J1200; J1885

== ENCOUNTER → 2023-10-12 14:38 | Outpatient (BNV) | payer OTHER, SELFPAY | PROVIDERS: Emergency Provider Emergency Medicine; PCP Nurse Practitioner Family; Visit Provider Internal Medicine Cardiovascular Disease | DX: R00.0 Tachycardia, unspecified (principal) | CPT/HCPCS: 93010 ==

== ENCOUNTER 2024-11-05 19:24 | Emergency (ER) | payer OTHER, SELFPAY ==
--- NOTE | ~2024-11-05 | XR_ITS ---
CLINICAL HISTORY: Pneumonia? COughing 1 view chest x-ray. Comparison: CR/SR - XR CHEST 1V - 10/12/23 16:24 EST Findings: The lungs appear clear. There is no consolidation, effusion, or nodule identified. Cardiomediastinal silhouette is within normal limits. IMPRESSION: No acute cardiopulmonary abnormality. This document has been electronically signed by: Nigel Hughes MD on 11/05/2024 20:30:03
[2024-11-05 19:29] VITALS: BP 130/82; PULSE 122; RESP 22; TEMP 37.1; O2SAT 97; BMI 42.1
--- NOTE | 2024-11-05 19:31 | ED_ITS ---
HPI - General Adult General Chief complaint: Dyspnea Stated complaint: Asthma/SOB Time Seen by Provider: 11/05/24 23:25 Source: patient, RN notes reviewed and old records reviewed Mode of arrival: ambulatory Limitations: no limitations History of Present Illness ED Provider: Georgie PAGE narrative: [age] old female with past medical history significant for asthma presents for evaluation of shortness of breath. Patient reports that she was diagnosed with COVID-19 on , about 2 weeks ago. She reports she never really got better after her COVID diagnosis. She states that she is still coughing with production of yellow sputum She endorses chills, malaise. She states that it hurts to take a deep breath She has been using her nebulizers without any improvement No other complaints or concerns at this time Denies any recent travel or leg swelling Related Data Previous Rx's ?Medication ?Instructions ?Recorded nitrofurantoin 100 mg PO Q12H 7 days #14 caps 04/23/23 monohydrate/macrocrystals 100 mg capsule (Macrobid) omeprazole 40 mg capsule,delayed 40 mg PO DAILY #20 caps 04/23/23 release cefuroxime axetil 500 mg tablet 500 mg PO BID 7 days #14 tabs 07/11/23 ibuprofen 600 mg tablet 600 mg PO Q6H PRN fever or pain 07/11/23 #30 tabs ibuprofen 600 mg tablet 600 mg PO Q6H PRN pain #14 tabs 10/13/23 meclizine 25 mg tablet 25 mg PO TID PRN dizziness #14 tabs 10/13/23 azithromycin 250 mg tablet See Rx Instructions PO .COMPLEX #6 11/06/24 tabs prednisone 20 mg tablet 40 mg (2 x 20 mg) PO DAILY #10 tabs 11/06/24 Allergies Allergy/AdvReac Type Severity Reaction Status Date / Time amoxicillin [AMOXICILLIN] Allergy Unknown RASH Verified 11/05/24 19:29 Penicillins [PENICILLINS] Allergy Unknown RASH Verified 11/05/24 19:29 clindamycin AdvReac Rash Verified 11/05/24 19:29 oxycodone [From Percocet] AdvReac Hallucinati Verified 11/05/24 19:29 ons Review of Systems Constitutional: Constitutional: Denies body ache(s), Reports chills, Denies fever(s), Reports malaise and Reports weakness ENT: Denies vertigo, Denies dizziness and Denies sore throat Cardiovascular: Cardiovascular: Denies chest pain and Reports dyspnea Respiratory: Respiratory: Reports cough, Reports pain with cough and Reports dyspnea Gastrointestinal: Gastrointestinal: Denies abdominal pain, Denies nausea and Denies vomiting Musculoskeletal: Musculoskeletal: Denies back pain Integumentary/Breasts: Skin/Breast: Denies rash Neurologic: Denies vertigo, Denies dizziness and Reports weakness Psychiatric: Psychiatric: Denies anxiety PMFSH Social History Social History Advance Directives: No Advance Directives Information Provided: No Physical Exam ED Vital Signs: Vital Signs - 24 hr 11/05/24 19:29 11/05/24 19:58 11/06/24 00:06 Temperature 98.7 F 97.3 F Pulse Rate 122 H 104 H 88 Respiratory Rate 22 H 22 H 16 Blood Pressure 130/82 129/75 Pulse Oximetry 97 98 Oxygen Delivery Method Room Air Room Air 11/06/24 01:17 Temperature 97.3 F Pulse Rate 88 Respiratory Rate 16 Blood Pressure 129/75 Pulse Oximetry 98 Oxygen Delivery Method Room Air BMI result Body Mass Index 42.1 Const General: healthy appearing, comfortable, no acute distress, alert and awake Nutritional Appearance: well nourished Orientation/consciousness: patient oriented x3 HENMT Head: Yes normocephalic and Yes atraumatic Throat: Yes posterior oropharynx normal Eyes Eyelids: Yes eyelids normal Conjunctivae: conjunctivae normal Sclerae: sclerae normal Corneas: corneas normal Pupils: Equal, round and reactive pupils present EOM: EOMs intact bilaterally Neck Neck: Yes full ROM Resp Other: Slightly diminished, but otherwise clear to auscultation without wheezing Effort & Inspection: normal respiratory effort, able to speak in complete sentences, no audible wheezes and not labored Auscultation: clear to auscultation bilaterally Cardio Rate: regular rate Rhythm: regular rhythm GI Inspection: No distended Palpation (GI): Soft to palpation, not firm, nontender, no guarding and not rigid Skin General skin exam: no rashes or lesions noted and elasticity normal Neuro General: patient oriented x3 Cranial nerves: Yes Equal, round and reactive pupils present and Yes Bilaterally intact EOM present Cognition (Neuro): normal cognition Extrem Other: Moving all extremities well without any obvious deformities Course Course Course Narrative: RME: 28-year-old female presents to ED for chest tightness, coughing, shortness of breath or runny nose. Patient recently got over COVID. Today started having chest tightness wheezing coughing and runny nose. Lungs positive for diminished lung sounds. Negative for leg swelling or calf pain. Chest x-ray SARs strep albuterol prednisone ordered Reevaluation(s) Reevaluation #1: Patient tested positive for COVID. She reports that she was positive on and then negative again 2 days ago. We will treat with azithromycin and prednisone as her symptoms have been present for over 2 weeks. Time: 00:53 Medications Administered Discontinued Medications Generic Name Dose Route Start Last Admin Trade Name Freq PRN Reason Stop Dose Admin Albuterol/Ipratropium 3 ml 11/05/24 19:55 11/05/24 19:58 Albuterol/Iprat 2.5/0.5mg 3 Ml Ampul.Neb INHALE 11/05/24 19:56 3 ml ONCE ONE Administration Prednisone 40 mg 11/05/24 19:29 11/05/24 19:36 Prednisone 20 Mg Tablet PO 11/05/24 19:30 40 mg ONCE ONE Administration Medical Decision Making Medical Decision Making MDM Narrative: 28-year-old female presents for evaluation of shortness of breath. Her lungs are clear to auscultation though she had received a nebulizer prior to my evaluation. She appears quite well, she is not hypoxic. Viral swabs and strep swab ordered. Chest x-ray is clear without focal infiltrates. Low suspicion for PE as the patient is PERC negative Differential Diagnosis Differential Diagnoses: The differential diagnosis associated with the presentation includes Acute asthma exacerbation Bronchitis Pneumonia Viral syndrome Upper respiratory infection COVID-19 Lab Data Labs: Lab Results 11/05/24 Range/Units 23:34 Influenza Type A (PCR) NEGATIVE (Negative) Influenza Type B (PCR) NEGATIVE (Negative) RSV RNA Qual (PCR) NEGATIVE (Negative) SARS-CoV-2 RNA (RT-PCR) POSITIVE A (Negative) S. pyogenes GrpA JASON Negative (Negative) Independent Interpretation I performed an independent interpretation of an: Plain X-Ray (Agree with Radiology interpreted) Radiology Impression Discussion of test interpretation with radiology: I have reviewed the radiologist's reading. Radiologist Impression: Findings: The lungs appear clear. There is no consolidation, effusion, or nodule identified. Cardiomediastinal silhouette is within normal limits. IMPRESSION: No acute cardiopulmonary abnormality. This document has been electronically signed by: Nigel Hughes MD on 11/05/2024 20:30:03 Discharge Plan Discharge Clinical Impression: COVID-19, Asthma Patient Disposition: Home, Self-Care Instructions: Asthma (ED), COVID-19 (Coronavirus Disease 2019) (ED) Additional Instructions: Take azithromycin as prescribed Take prednisone 40 mg daily for the next 5 days Use your albuterol inhaler as directed. You tested negative for strep throat but still test positive for COVID-19 Follow-up with your primary doctor, return for new or worsening symptoms Prescriptions: New azithromycin 250 mg tablet See Rx Instructions .ROUTE .COMPLEX Qty: 6 0RF Rx Instructions: For 250 mg dose pack: take 500 mg today (day 1), then 250 mg for 4 days (days 2-5) prednisone 20 mg tablet 40 mg PO DAILY Qty: 10 0RF No Action nitrofurantoin monohyd/m-cryst [Macrobid] 100 mg capsule 100 mg PO Q12H 7 Days Qty: 14 0RF Rx Instructions: must administer with a meal/food omeprazole 40 mg capsule,delayed release(DR/EC) 40 mg PO DAILY Qty: 20 0RF ibuprofen 600 mg tablet 600 mg PO Q6H PRN (Reason: fever or pain) Qty: 30 0RF cefuroxime axetil 500 mg tablet 500 mg PO BID 7 Days Qty: 14 0RF meclizine 25 mg tablet 25 mg PO TID PRN (Reason: dizziness) Qty: 14 0RF ibuprofen 600 mg tablet 600 mg PO Q6H PRN (Reason: pain) Qty: 14 0RF Stand Alone Forms: Work/School Release Interventions: ED Discharge Assessment Last Done: 11/06/24 01:17 Discharge Date/Time: 11/06/24 01:17 Print Language: Hungarian
[2024-11-05] MEDS: predniSONE 20 MG TABLET 40 MG PO (19:36)
[2024-11-05 19:58] VITALS: PULSE 104; RESP 22; O2SAT 99
[2024-11-05] MEDS: Albuterol/Iprat 2.5/0.5MG 3 ML AMPUL.NEB INHALE (19:58)
[2024-11-06 00:02] LABS: IDNOW Serial# 6674DD1D; Strep A Nucleic Acid Negative (Negative)
[2024-11-06 00:06] VITALS: BP 129/75; PULSE 88; RESP 16; TEMP 36.3; O2SAT 98
[2024-11-06 00:36] LABS: Influenza A PCR NEGATIVE (Negative); Influenza B PCR NEGATIVE (Negative); Resp Syncy Virus RNA Qual PCR NEGATIVE (Negative); SARS COV2 PCR INHOUSE POSITIVE (Negative)
[2024-11-06 01:17] VITALS: BP 129/75; PULSE 88; RESP 16; TEMP 36.3; O2SAT 98
== END 2024-11-06 01:17 | disposition home or self-care (01) ==
PROVIDERS: Physician Assistant; Emergency Provider Emergency Medicine Emergency Medical Services; PCP Nurse Practitioner Family
DX: U07.1 COVID-19 (principal); J45.909 Unspecified asthma, uncomplicated; R06.02 Shortness of breath; R53.81 Other malaise; R05.9 Cough, unspecified
CPT/HCPCS: 0241U; 71045; 87651; 94640; 99284

== ENCOUNTER → 2024-11-05 19:29 | Outpatient (BNV) | payer OTHER, SELFPAY | PROVIDERS: PCP Nurse Practitioner Family; Visit Provider Radiology Diagnostic Radiology | DX: R05.1 Acute cough (principal) | CPT/HCPCS: 71045 ==

== ENCOUNTER 2025-07-26 01:24 | Emergency (ER) | payer OTHER, SELFPAY ==
--- NOTE | ~2025-07-26 | XR_ITS ---
CLINICAL HISTORY: Trauma; Pain 3 views right great toe Comparison: None provided Findings: There is soft tissue swelling and there appears to be some irregularity of the toenail of the great toe. There is no fracture or dislocation. Joint spaces appear normal. There is no radiopaque foreign body. Impression: No osseous abnormality. This document has been electronically signed by: Nigel Hughes MD on 07/26/2025 03:26:38
[2025-07-26 01:29] VITALS: BP 125/77; PULSE 91; RESP 16; TEMP 36.3; O2SAT 98; BMI 38.7
--- NOTE | 2025-07-26 01:45 | ED.GENADULT ---
HPI - General Adult General Chief complaint: General Medical Stated complaint: Infection in right toe Time Seen by Provider: 07/26/25 01:45 Source: patient Mode of arrival: ambulatory Limitations: no limitations History of Present Illness ED Provider: Gadiel CARUSO HPI narrative: The patient is a 29-year-old female presenting to the ED for evaluation of pain in her right great toe. Patient reports she recently had acrylic toenails applied to her toes. On Wednesday the patient reports she was drinking alcohol and accidentally stubbed the right great toe on a wall resulting in a lifting injury of the right great toenail. Patient reports since Wednesday she has noticed nail discoloration and a mix of purulent and bloody drainage from beneath and around the toenail with associated pain. The patient reports subjective chills but denies objective fever, denies associated nausea, vomiting, or other systemic complaint. Related Data Previous Rx's ?Medication ?Instructions ?Recorded nitrofurantoin 100 mg PO Q12H 7 days #14 caps 04/23/23 monohydrate/macrocrystals 100 mg capsule (Macrobid) omeprazole 40 mg capsule,delayed 40 mg PO DAILY #20 caps 04/23/23 release cefuroxime axetil 500 mg tablet 500 mg PO BID 7 days #14 tabs 07/11/23 ibuprofen 600 mg tablet 600 mg PO Q6H PRN fever or pain 07/11/23 #30 tabs ibuprofen 600 mg tablet 600 mg PO Q6H PRN pain #14 tabs 10/13/23 meclizine 25 mg tablet 25 mg PO TID PRN dizziness #14 tabs 10/13/23 azithromycin 250 mg tablet See Rx Instructions PO .COMPLEX #6 11/06/24 tabs prednisone 20 mg tablet 40 mg (2 x 20 mg) PO DAILY #10 tabs 11/06/24 cephalexin 500 mg capsule 500 mg PO QID #28 caps 07/26/25 Allergies Allergy/AdvReac Type Severity Reaction Status Date / Time amoxicillin (AMOXICILLIN) Allergy Unknown RASH Verified 07/26/25 01:29 Penicillins (PENICILLINS) Allergy Unknown RASH Verified 07/26/25 01:29 clindamycin AdvReac Rash Verified 07/26/25 01:29 oxycodone (From Percocet) AdvReac Hallucinati Verified 07/26/25 01:29 ons Review of Systems Review of Systems: Yes all other systems are reviewed and are negative PMFSH Social History Social History Smoked in Last 30 Days: No Use of substances other than those prescribed or required for medical reasons: No Advance Directives: No Advance Directives Information Provided: Yes Patient : No Physical Exam ED Vital Signs: Vital Signs - 24 hr 07/26/25 01:29 Temperature 97.4 F Pulse Rate 91 Respiratory Rate 16 Blood Pressure 125/77 Pulse Oximetry 98 Oxygen Delivery Method Room Air BMI result Body Mass Index 38.7 CONSTITUTIONAL: The patient appears non-toxic, well nourished and in no acute distress. Vital signs as documented. HEAD: Atraumatic, normocephalic. EYES: EOMs grossly intact, pupils equal, conjunctiva clear, no exudate. ENT: Nares patent, no discharge. Airway patent, no audible stridor, visible mucosa is pink and moist without noted lesions. NECK: trachea is midline, no obvious masses or gross abnormalities. CHEST: Symmetric movement, normal appearance. LUNGS: Non-labored work of breathing. CARDIAC: No evidence of hypoperfusion. ABDOMEN: Nondistended, no obvious injury. : Deferred. EXTREMITIES: Moves all extremities spontaneously without reported pain. A long acrylic nail is noted attached to the right great toenail. There is erythema noted throughout the distal right great toe. There is purulent drainage noted around the cuticle of the right great toe, without evidence of fluid collection/paronychia, nail is intact and fully within the cuticle however nail is markedly loose and lifts easily from the nail bed, with additional purulent material noted beneath the nail. Distal CSM intact. No other obvious injury or deformity noted. NEURO: Alert and oriented x3, CN II-XII appear grossly intact. Cerebellar Functioning grossly intact. Speech clear and appropriate. SKIN: Warm, dry, color appropriate. No rashes or lesions noted. Medications Administered Discontinued Medications Generic Name Dose Route Start Last Admin Trade Name Freq PRN Reason Stop Dose Admin Acetaminophen 975 mg 07/26/25 02:09 07/26/25 02:32 Acetaminophen 325 Mg Tablet PO 07/26/25 02:10 975 mg ONCE ONE Administration Bacitracin 1 appl 07/26/25 02:09 07/26/25 02:32 Bacitracin Oint 0.9 Gm Packet TOPICAL 07/26/25 02:10 1 appl ONCE ONE Administration Protocol Cephalexin HCl 500 mg 07/26/25 02:07/26/25 02:32 Cephalexin 500 Mg Capsule PO 07/26/25 02:10 500 mg ONCE ONE Administration Ibuprofen 600 mg 07/26/25 02:07/26/25 02:32 Ibuprofen 600 Mg Tablet PO 07/26/25 02:10 600 mg ONCE ONE Administration Medical Decision Making Medical Decision Making [facility] Narrative: 2:04 AM 07/26/2025 (Stephanie CARUSO): The patient is a 29-year-old female presenting to the ED for evaluation of right great toe erythema and pain after suffering a stubbing injury to the right great toenail on Wednesday. Since that time patient has been experiencing swelling, erythema, discoloration, and purulent drainage from the nail bed and cuticle. The patient's exam reveals evidence of cellulitis without obvious paronychia. Full nonpainful range of motion. The patient will be treated with digital block, followed by removal of the acrylic nail to reduce risk of repeat lifting. We will also treat with cephalexin. Admission/Observation Consideration of admission/observation: Escalation of care including admission/observation considered Lab Data [facility] Lab Attestation statement: I reviewed the patient's lab results. 07/26/25 01:46 07/26/25 01:46 Labs: Lab Results 07/26/25 Range/Units 01:46 WBC 11.1 H (4.8-10.8) X10*3/uL RBC 4.53 (4.20-5.50) X10*6/uL Hgb 14.4 (12.0-16.0) g/dl Hct 38.7 (37.0-47.0) % MCV 85.4 (80.0-98.0) fL MCH 31.8 (27.0-33.0) pg MCHC 37.2 H (31.0-35.0) g/dl RDW 12.4 (11.0-16.0) % Plt Count 353 D (160-400) X10*3/uL MPV 8.6 L (9.4-12.3) fL Immature Gran % (Auto) 0.4 (0.0-0.4) % Neut % (Auto) 57.8 (45-73) % Lymph % (Auto) 30.5 (20-40) % [place] % (Auto) 7.7 (2-11) % Eos % (Auto) 3.0 (0-4) % Baso % (Auto) 0.6 (0-2) % Lymph # (Auto) 3.4 (1.2-4.9) X10*3/uL [place] # (Auto) 0.9 (0.1-1.2) X10*3/uL Eos # (Auto) 0.3 (0.0-0.4) X10*3/uL Baso # (Auto) 0.1 (0.0-0.2) X10*3/uL Abs Immat Gran (auto) 0.04 H (0.00-0.03) X10*3/uL Absolute Neuts (auto) 6.4 (2.0-8.3) x10*3/uL Absolute Nucleated RBC 0.000 (0.0-0.012) X10*3/uL Nucleated RBC % (auto) 0.0 (0.0-0.2) /100WBC Sodium 138 (135-145) mmol/L Potassium 4.0 (3.3-5.1) mmol/L Chloride 108 (96-108) mmol/L Carbon Dioxide 20 L (22-29) mmol/L Anion Gap 14 (12-20) BUN 10 (9-16) mg/dL Creatinine 0.77 (0.5-1.4) mg/dL Estim Creat Clear Calc 101.4 Estimated GFR > 60 Random Glucose 96 (60-115) mg/dL Calcium 9.8 (8.4-10.2) mg/dL Total Bilirubin 0.6 (0.0-1.0) mg/dL AST 24 (5-31) U/L ALT 19 (0-31) U/L Alkaline Phosphatase 65 (39-117) U/L Total Protein 7.7 (6.5-8.0) g/dL Albumin 4.7 (3.5-5.0) g/dL Radiology Impression Discussion of test interpretation with radiology: I have reviewed the radiologist's reading. External Record Review External record reviewed: Outpatient record Discharge Plan Discharge Clinical Impression: Toenail avulsion, Infection of toe Patient Disposition: Home, Self-Care Instructions: Cellulitis (ED), Nail Avulsion (ED) Additional Instructions: Thank you for choosing [facility]'s Emergency Department for your care today. Thankfully your laboratory evaluation, x-ray, and exam today are all reassuring. At this time there is no indication for admission to the hospital or continued ED observation, and it is safe to discharge you home. Your presentation is consistent with a partial toenail avulsion with subsequent cellulitis. We removed your acrylic nail to reduce the risk of recurrent avulsion of the nail. Please take cephalexin as prescribed until it is finished. You may take alternating (staggered) doses of ibuprofen 600mg and Tylenol 1000mg every 4 hours as needed for any additional pain. Please rest the injured area, and apply ice for 20 minutes every hour. Please follow up with your primary care physician for re-evaluation, additional management of your symptoms, and continued preventative care. If you do not have a primary care physician, please call the [facility] at [phone] to establish a new primary care physician. While waiting to establish your new primary care physician, you can call our Walk-in Care Clinic at [phone] for non-emergency needs. Please return to the emergency department if you develop a severe or sudden change in your symptoms, a fever over 100.4 that does not improve with Tylenol or Ibuprofen, recurrent vomiting, or any other new or worsening symptoms or concerns. Prescriptions: New cephalexin 500 mg capsule 500 mg PO QID Qty: 28 0RF No Action nitrofurantoin monohyd/m-cryst [Macrobid] 100 mg capsule 100 mg PO Q12H 7 Days Qty: 14 0RF Rx Instructions: must administer with a meal/food omeprazole 40 mg capsule,delayed release(DR/EC) 40 mg PO DAILY Qty: 20 0RF ibuprofen 600 mg tablet 600 mg PO Q6H PRN (Reason: fever or pain) Qty: 30 0RF cefuroxime axetil 500 mg tablet 500 mg PO BID 7 Days Qty: 14 0RF azithromycin 250 mg tablet See Rx Instructions .ROUTE .COMPLEX Qty: 6 0RF Rx Instructions: For 250 mg dose pack: take 500 mg today (day 1), then 250 mg for 4 days (days 2-5) prednisone 20 mg tablet 40 mg PO DAILY Qty: 10 0RF meclizine 25 mg tablet 25 mg PO TID PRN (Reason: dizziness) Qty: 14 0RF ibuprofen 600 mg tablet 600 mg PO Q6H PRN (Reason: pain) Qty: 14 0RF Referrals: Lola Calabrese BUSINESS UNIT LEADER [Primary Care Provider, Geriatrics] Clinical Impression: Toenail avulsion; Infection of toe Print Language: Serbian
[2025-07-26 01:50] LABS: MANUAL DIFF FLAG NO
[2025-07-26 01:52] LABS: Hematocrit 38.7 % (37.0-47.0); Hemoglobin 14.4 g/dl (12.0-16.0); Imm Gran Abs Auto 0.04 X10*3/uL (0.00-0.03); Imm Gran Pct Auto 0.4 % (0.0-0.4); Lymphocytes Absolute Auto 3.4 X10*3/uL (1.2-4.9); Mean Corpuscular HGB Conc 37.2 g/dl (31.0-35.0); Mean Corpuscular Hemoglobin 31.8 pg (27.0-33.0); Mean Corpuscular Volume 85.4 fL (80.0-98.0); NRBC Abs Auto 0.000 X10*3/uL (0.0-0.012); NRBC Pct Auto 0.0 /100WBC (0.0-0.2); Platelet Count 353 X10*3/uL (160-400); Red Blood Count 4.53 X10*6/uL (4.20-5.50); White Blood Count 11.1 X10*3/uL (4.8-10.8)
--- NOTE | 2025-07-26 01:59 | PC.NURSE ---
pt a&ox4, respirations even and unlabored. pt reports stubbing toe against wall with acrylic nail on, reports since then her nail has been lifting and causing pain. redness noted to right great toe. ZULY Meeks at bedside, digital block placed. pt tolerated well
[2025-07-26 02:06] LABS: Alanine Aminotransferase 19 U/L (0-31); Albumin Level 4.7 g/dL (3.5-5.0); Alkaline Phosphatase 65 U/L (39-117); Anion Gap 14 (12-20); Aspartate Amino Transferase 24 U/L (5-31); Blood Urea Nitrogen 10 mg/dL (9-16); Calcium 9.8 mg/dL (8.4-10.2); Carbon Dioxide 20 mmol/L (22-29); Chloride 108 mmol/L (96-108); Creatinine Clr Calc Pharmacy 101.4; Estimated Glomerular Filt Rate > 60; Potassium 4.0 mmol/L (3.3-5.1); Sodium 138 mmol/L (135-145); Total Protein 7.7 g/dL (6.5-8.0)
--- OUTSIDE RECORDS SUMMARY | 2025-07-26 02:23 | XMS_ITS | Clinical Summary ---
Author Organization [facility] Address [address] [place] [id number] Phone Care Team Providers Care Casino Floor Person Name Role Phone Lola Calabrese NP Primary Care Provider Allergies Active Allergy Reactions Criticality Noted Date Comments Amoxicillin 01/29/2018 Penicillins 01/29/2018 Oxycodone-Acetaminophen 01/29/2018 Medications albuterol 90 mcg/actuation inhaler Active acetaminophen-c odeine (TYLENOL #3) 300-30 mg per tablet Take 1 tablet by mouth every 6 (six) hours as needed for pain (specific location in comments). 24 tablet 01/31/2018 Active Active Problems Problem Noted Date Diagnosed Date Chest pain 01/31/2018 Assessment & Plan (01/31/2018 4:01 AM EDT): Given that her symptoms improve with bronchodilators, this is likely related to her asthma. PE is also on the differential, but with normal vital signs, normal oxygen saturation on room air and no physical exam findings concerning for DVT, I do not feel that she needs a CTPA at this time. Will obtain EKG and chest xray and monitor symptoms. Continue bronchodilators. SBO (small bowel obstruction) 01/29/2018 Immunizations No known immunizations Social History Tobacco Use Types Packs/Day Years Used Date Smoking Tobacco: Never Smokeless Tobacco: Never Tobacco Cessation:Counseling Given: No Alcohol Use Standard Drinks/Week Comments No 0 (1 standard drink = 0.6 oz pur e alcohol) Education Answer Date Recorded Are you interested in more education? Not on kanika e 02/26/2023 Are you concerned about learning? Not on file 02/26/2023 No 02/26/2023 No 02/26/2023 Digital Access Answer Date Recorded No 03/27/2023 No 03/27/2023 No 03/27/2023 Reliable internet access at home? Not on file 03/27/2023 Device with a working camera? Not on file Comments Unknown Sex and Gender Information Value Date Recorded Sex Assigned at Female 01/29/2018 9:58 AM EDT Legal Sex Female 9:16 AM EDT Gender Identity Female 01/29/2018 9:58 AM EDT Sexual Orientation Straight 01/29/2018 9: 58 AM EDT Last Filed Vital Signs Vital Sign Reading Time Taken Comments Blood Pressure 113/77 01/31/2018 12:27 PM EDT Pulse 89 01/31/2018 12:27 PM EDT Temperature 37 C (98.6 F) 01/31/2018 12:27 PM EDT Respiratory Rate 18 01/31/2018 12:27 PM EDT Oxygen Saturation 97% 01/31/2018 12:27 PM EDT Inhaled Oxygen Concentration - - Weight 88 kg (194 lb) 01/29/2018 9:56 AM EDT Height 149.9 cm (4' 11 ) 01/29/2018 9:56 AM EDT Body Mass Index 39.18 01/29/2018 9:56 AM EDT Plan of Treatment Health Maintenance Due Date Last Done Comments Adult Td,Tdap Booster 1993 DEPRESSION SCREENING 2005 HEPATITIS C SCREENING 2011 HIV ONE-TIME SCREENING (18-6 5 YEARS) 2011 PAP SMEAR 2014 SMOKING STATUS SCREENING (On ce After 26 Yrs) 2019 INFLUENZA VACCINE (#1) 2025 COVID-19 VACCINE (2023-2 5 season) 2025 HEPATITIS A VACCINES Aged Out No long er eligible based on patient's age to complete this topic HIB VACCINES Aged Out No longer eligi ble based on patient's age to complete this topic MENINGOCOCCAL VACCINES (ACWY) Aged Out No longer eligible based on patient's age to complete this topic MENINGOCOCCAL VACCINES (B) Aged Out N o longer eligible based on patient's age to complete this topic PNEUMOCOCCAL VACCINES (0-49 years) Aged Out No longer eligible based on patient's age to complete this topic Medical Devices Implanted Type Area Soft Crab Shedder Device Identifier Shelf Expiration Date Model / Serial / Lot Mesh Synthetic Abdominal Non Absorbable L15cm 8cmw Rectangle Polypropylene Bx/6ea - [id number] Implanted:Qty: 1 on 01/29/2018 by Padma Vasquez MD at [facility] STANDARD N/A: Umbilical [employer] / DIVISION OF J 08/31/2022 [id number] / / [id number] Insurance [facility] PARTNERSHIP ACO [facility] Address: [address] [place] [address] Advance Directives For more information, please contact: [phone] (9AM - 5PM [facility], Wednesday-Wednesday) Documents on File Type Date Recorded Patient Lead Pressman Expl anation Healthcare Proxy 02/01/2018 3:51 PM Care Teams Casino Floor Person Relationship Specialty Start Date End Date Lola Calabrese NP [address] [place] [address] PCP - General Nurse Practitioner 07/20/23 Additional Source Comments The information contained in this document represents components of the legal health record. It is not the complete legal health record.[facility]
--- OUTSIDE RECORDS SUMMARY | 2025-07-26 02:23 | XMS_ITS | Encounter Summary ---
Author Organization [facility] Address [address] [place] [phone] Phone Care Team Providers Care Shipper Receiver Name Role Phone Zaida Hua MD Primary Care P rovider Lola Calabrese NP Primary Care Provider Encounter Details Date Type Department Care Team (Late st Contact Info) Description 01/29/2018 Procedure Pass [facility], Ct Scan - [facility] [address] [place] [address] Social History Tobacco Use Types Packs/Day Years Used Date Smoking Tobacco: Never Smokeless Tobacco: Never Alcohol Use Standard Drinks/Week Comments No 0 (1 standard drink = 0.6 oz pur e alcohol) Comments Unknown Sex and Gender Information Value Date Recorded Sex Assigned at Female 01/29/2018 9:58 AM EDT Legal Sex Female 9:16 AM EDT Gender Identity Female 01/29/2018 9:58 AM EDT Sexual Orientation Straight 01/29/2018 9: 58 AM EDT documented as of this encounter Plan of Treatment Not on file documented as of this encounter Visit Diagnoses Not on filedocumented in this encounter Care Teams Shipper Receiver Relationship Specialty Start Date End Date Zaida Hua MD [address] [place] [address] PCP - General Adolescent Medicine 01/29/18 07/19/23 Lola Calabrese NP [address] [place] [address] PCP - General Nurse Practitioner 07/20/23 documented as of this encounter Additional Source Comments The information contained in this document represents components of the legal health record. It is not the complete legal health record.[facility]
--- OUTSIDE RECORDS SUMMARY | 2025-07-26 02:23 | XMS_ITS | Encounter Summary ---
Author Organization [facility] Address [address] [place] [phone] Phone Care Team Providers Care Veterinary X Ray Operator Name Role Phone Zaida Hua MD Primary Care P rovider Lola Calabrese NP Primary Care Provider Encounter Details Date Type Department Care Team (Late st Contact Info) Description 01/29/2018 Procedure Pass [place] Admitting Dept - Virtual Department [address] [place] [address] Social History Tobacco Use Types Packs/Day Years [...] on filedocumented in this encounter Care Teams Veterinary X Ray Operator Relationship Specialty Start Date End Date Zaida Hua MD [address] [place] [address] PCP - General Adolescent Medicine 01/29/18 07/19/23 Lola Calabrese NP [address] [place] [address] PCP - General Nurse Practitioner 07/20/23 documented as of this encounter Additional Source Comments The information contained in this document represents components of the legal health record. It is not the complete legal health record.[facility]
[2025-07-26 03:27] VITALS: BP 138/88; PULSE 76; RESP 19; TEMP 37; O2SAT 98
[2025-07-26 03:28] VITALS: BP 138/88; PULSE 76; RESP 19; TEMP 37; O2SAT 98
== END 2025-07-26 03:28 | disposition home or self-care (01) ==
PROVIDERS: Emergency Provider Emergency Medicine; PCP Nurse Practitioner Family
DX: S91.201A Unspecified open wound of right great toe with damage to nail, initial encounter (principal); B96.89 Other specified bacterial agents as the cause of diseases classified elsewhere; X58.XXXA Exposure to other specified factors, initial encounter; Y93.9 Activity, unspecified; Y92.9 Unspecified place or not applicable; Y99.9 Unspecified external cause status
CPT/HCPCS: 36415; 73660; 80053; 85025; 99283; 99284

== ENCOUNTER → 2025-07-26 01:46 | Outpatient (BNV) | payer OTHER, SELFPAY | PROVIDERS: Emergency Provider Emergency Medicine; PCP Nurse Practitioner Family; Visit Provider Radiology Diagnostic Radiology | DX: L03.031 Cellulitis of right toe (principal) | CPT/HCPCS: 73660 ==

== ENCOUNTER 2025-09-05 01:48 | Emergency (ER) | payer OTHER, SELFPAY ==
--- OUTSIDE RECORDS SUMMARY | 2025-09-02 23:59 | XMS_ITS | Continuity of Care Document ---
Author Organization [facility] Address [address] [place] [address]- Care Team Providers Care Masonry Inspector Name Role Phone Guanakito MORAN, Lola Primary Care Physician Encounter [facility] NBR [id number] Date(s): 08/03/25 - 09/02/25 [facility] [address], [place] [address] Attending Physician: Marisol Muse Admitting Physician: Marisol Muse Referring Physician: Marisol Muse Encounter Type: Triage Allergies, Adverse Reactions, Alerts Substance Criticality Severity Reaction Reaction Severity Status clindamycin C/O: a rash Active amoxicillin C/O: a rash Active Bactrim sade Rash Active Percocet 5/325 Hallucinations Active penicillins C/O: a rash Active Immunizations Given and Recorded Vaccine Date Status Refusal Reason pneumococcal 21-valent conjugate vaccine 05/11/25 Recorded SARS-CoV-2 (COVID-19) mRNA-1273 vaccine 05/19/21 R ecorded SARS-CoV-2 (COVID-19) mRNA-1273 vaccine 04/01/21 R ecorded tetanus/diphtheria/pertussis, acel(Tdap) 01/15/21 Recorded Medications Colace sodium 100 mg oral capsule 100 mg, 1, capsule, By Mouth, 2 times a day, PRN, # 100 capsule, Refills 3, Tot. Refills 3, Maintenance, for constipation, 05/01/25 1:13:00 PM EDT, Route to Pharmacy Electronically, [facility]/pharmacy #[id number],Partial fill upon patient request if the prescription is for a schedule II opioid drug., 150, cm, 05/01/25 12:47:00 EDT, Height, 96.2, kg, 08/09/24 17:46:00 EDT, Dry Weight Start Date: 05/01/25 Status: Ordered Medication Dispense Status: Completed Quantity: 100.0 Unit: capsule Total Allowed Fills: 4 Fills Dispensed: 0 CPAP Machine See Instructions, # 1 each, Maintenance, Patient should be started on AutoCPAP 5-15 cm H2O with compliance data followed Use nightly forOSA. TANISHA: lifetime, 09/09/23 10:19:00 AM EST, Compound Start Date: 09/09/23 Status: Ordered Medication Dispense Status: Completed Quantity: 1.0 Unit: each Total Allowed Fills: 1 Fills Dispensed: 0 Indications: Obstructive sleep apnea (adult) (pediatric); CPAP Equipment See Instructions, # 1 each, Refills 11, Tot. Refills 11, Maintenance, Mask, tubing, filters, head gear, chin strap, water chamber. Use nightly with compressor for obstructive sleep apnea (G47.33) TANISHA: lifetime, 09/09/23 10:21:00 AM EST, Compound Start Date: 09/09/23 Status: Ordered Medication Dispense Status: Completed Quantity: 1.0 Unit: each Total Allowed Fills: 12 Fills Dispensed: 0 Indications: Obstructive sleep apnea (adult) (pediatric); GaviLAX oral powder for reconstitution See Instructions, DISSOLVE 17 GRAM IN 4 TO 8 OZ OF BEVERAGE AND DRINK, # 1,530 Gm, 1 Refills, Maintenance, 08/29/25 12:27:00 PM EDT, [facility] STORE [id number], 90, DISSOLVE 17 GRAM IN 4 TO 8 OZ OF BEVERAGE ANDDRINK, 150, cm, 08/22/25 9:22:00 EDT, Height, 96.2, kg, 08/09/24 17:46:00 EDT, Dry Weight Start Date: 08/29/25 Status: Ordered Medication Dispense Status: Completed Quantity: 1530.0 Unit: g Total Allowed Fills: 1 Fills Dispensed: 0 hydrOXYzine hydrochloride 25 mg oral tablet 1 tablet = 25 mg, By Mouth, 3 times a day, PRN for anxiety, # 90 tablet, 0 Refills, Maintenance, 08/22/25 10:01:00 AM EDT, Tablet, [facility]/pharmacy #[id number], Partial fill upon patient request if the prescription is for a schedule II opioid drug., 150, cm, 08/22/25 9:22:00 EDT, Height, 96.2, kg, 08/09/24 17:46:00 EDT, Dry Weight Start Date: 08/22/25 Stop Date: 09/21/25 Status: Ordered Medication Dispense Status: Completed Quantity: 90.0 Unit: tablet Total Allowed Fills: 1 Fills Dispensed: 0 Indications: Adjustment disorder with anxiety; loratadine 10 mg oral tablet 10 mg, 1, tablet, By Mouth, Daily, # 90 tablet, Refills 5, Tot. Refills 5, Maintenance, 11/17/24 2:43:00 PM EST, Route to Pharmacy Electronically, [facility]/pharmacy #[id number], Partial fill upon patient requestif the prescription is for a schedule II opioid drug., 150, cm, 11/17/24 14:39:00 EST, Height, 96.2, kg, 08/09/24 17:46:00 EDT, Dry Weight Start Date: 11/17/24 Status: Ordered Medication Dispense Status: Completed Quantity: 90.0 Unit: tablet Total Allowed Fills: 6 Fills Dispensed: 0 montelukast 10 mg oral tablet 1, tablet, By Mouth, Daily in PM, # 90 tablet, Refills 1, Maintenance, 05/25/25 9:50:00 AM EDT, Route to Pharmacy Electronically, [facility] STORE [id number], 150, cm, 05/01/25 12:47:00 EDT, Height, 96.2, kg, 08/09/24 17:46:00 EDT, Dry Weight Start Date: 05/25/25 Status: Ordered Medication Dispense Status: Completed Quantity: 90.0 Unit: tablet Total Allowed Fills: 1 Fills Dispensed: 0 omeprazole 20 mg oral enteric coated capsule 1 capsule, By Mouth, Daily, # 90 capsule, 3 Refills, Maintenance, 11/17/24 2:43:00 PM EST, [facility]/pharmacy #[id number], 150, cm, 11/17/24 14:39:00 EST, Height, 96.2, kg, 08/09/24 17:46:00 EDT, Dry Weight Start Date: 11/17/24 Stop Date: 11/12/25 Status: Ordered Medication Dispense Status: Completed Quantity: 90.0 Unit: capsule Total Allowed Fills: 4 Fills Dispensed: 0 sertraline 25 mg oral tablet 1 tablet = 25 mg, By Mouth, Daily, # 30 tablet, 0 Refills, Maintenance, 08/22/25 9:59:00 AM EDT, Tablet, [facility]/pharmacy #[id number], Partial fill upon patient request if the prescription is for a schedule IIopioid drug., 150, cm, 08/22/25 9:22:00 EDT, Height, 96.2, kg, 08/09/24 17:46:00 EDT, Dry Weight Start Date: 08/22/25 Status: Ordered Medication Dispense Status: Completed Quantity: 30.0 Unit: tablet Total Allowed Fills: 1 Fills Dispensed: 0 Indications: Adjustment disorder with depressed mood; Adjustment disorder with anxiety; Spiriva Respimat 1.25 mcg/inh inhalation aerosol 2 inhalation = 2.5 mcg, Inhalation, Daily, not to exceed 2 inhalations/day, # 4 Gm, 11 Refills, Maintenance, 06/14/25 10:59:00 AM EDT, Aerosol, [facility]/pharmacy #[id number], Partial fill upon patient request ifthe prescription is for a schedule II opioid drug., 150, cm, 06/11/25 10:44:00 EDT, Height, 96.2, kg, 08/09/24 17:46:00 EDT, Dry Weight Start Date: 06/14/25 Stop Date: 06/09/26 Status: Ordered Medication Dispense Status: Completed Quantity: 4.0 Unit: g Total Allowed Fills: 12 Fills Dispensed: 0 Symbicort 160mcg/4.5mcg Inhaler 2, puffs, Inhalation, 2 times a day, # 30.6 each, Refills 1, Maintenance, 08/26/25 6:40:00 PM EDT, Route to Pharmacy Electronically, [id number], [facility] STORE [id number], 150, cm, 08/22/25 9:22:00 EDT, Height, 96.2, kg, 08/09/24 17:46:00 EDT, Dry Weight Start Date: 08/26/25 Status: Ordered Medication Dispense Status: Completed Quantity: 30.6 Unit: each Total Allowed Fills: 1 Fills Dispensed: 0 Ventolin HFA 108 mcg/inh inhalation aerosol with adapter 1 puffs, Inhalation, 4 times a day, PRN for wheezing, # 8 Gm, 1 Refills, Maintenance, 06/25/25 7:43:00 AM EDT, Aerosol, [facility]/pharmacy #[id number], Partial fill upon patient request if the prescription is fora schedule II opioid drug., 150, cm, 06/11/25 10:44:00 EDT, Height, 96.2, kg, 08/09/24 17:46:00 EDT, Dry Weight Start Date: 06/25/25 Status: Ordered Medication Dispense Status: Completed Quantity: 8.0 Unit: g Total Allowed Fills: 2 Fills Dispensed: 0 Zepbound Pen 15 mg/0.5 mL subcutaneous solution = 15 mg, Subcutaneous Injection, Every week, rotate injection sites, # 2 mL, 5 Refills, Maintenance, 08/03/25 1:56:00 PM EDT, Solution, [facility]acy #[id number], Partial fill upon patient request if the prescription is for a schedule II opioid drug., 150, cm, 08/03/25 13:43:00 EDT, Height, 96.2, kg, 08/09/24 17:46:00 EDT, Dry Weight Start Date: 08/03/25 Status: Ordered Medication Dispense Status: Completed Quantity: 2.0 Unit: mL Total Allowed Fills: 6 Fills Dispensed: 0 Problem List Condition Confirmation Course Effective Dates Status H ealth Status Informant Anal fissure Confirmed Active Asthma Confirmed Active Cholelithiasis Confirmed Active Carpal tunnel syndrome, left Confirmed Active Dry skin Confirmed Active Hidradenitis suppurativa Confirmed Active Obstructive sleep apnea Confirmed Active Severe obesity (BMI 35.0-39.9) with comorbidity Confirmed Active Social History Social History Type Response Smoking Status Never smoker entered on: 12/15/14 Sexual Orientation Self described orien tation: ; Straight or heterosexual Sex Sex Representation Female (finding) Patient Care team information Care Team Personnel Name: Lola Calabrese NP Position: [facility] PCO Associate Professional Member Role: PCP Address: [address] [place] [id number] Telecom: Care Team Related Persons Name: FERNANDO DIAZ Name: FERNANDO DIAZ Name: VONDA TOWNSEND Name: PORFIRIO TOWNSEND Name: ISABELL MOORE Name: MEÑO MOORE Insurance Providers [facility]or [facility] Plan Information #: 1 Payer: [facility] Payer Identifier: NA Member Number: [id number] Group Number: [id number] Subscriber Identifier: NA Relationship to Subscriber: self Coverage Type: Medicaid (Managed Care) Coverage Verification Date: Telecom: NA Address:
--- NOTE | 2025-09-05 | ECG_ITS ---
Test Reason : CP Blood Pressure : */* mmHG Vent. Rate : 80 BPM Atrial Rate : 80 BPM P-R Int : 134 ms QRS Dur : 78 ms QT Int : 348 ms P-R-T Axes : 42 5 14 degrees QTcB Int : 401 ms Normal sinus rhythm with sinus arrhythmia Normal ECG When compared with ECG of 12-Oct-2023 14:46, No significant change was found Referred By: Generic ED Physician Electronically Signed By: Tobias Liu
--- NOTE | ~2025-09-05 | XR_ITS ---
CLINICAL HISTORY: pain Exam: AP portable chest x-ray. Comparison: November 05, 2024. Findings: Lungs are well inflated. Mediastinal contours, cardiac silhouette, pulmonary vasculature are within normal limits. No focal areas of consolidation. No rib fracture, pneumothorax, or pleural effusion. Impression: No acute finding. This document has been electronically signed by: Osiel Huber MD on 09/05/2025 02:51:09
[2025-09-05 01:58] VITALS: BP 118/86; PULSE 84; RESP 20; TEMP 36.1; O2SAT 99; BMI 36.1
[2025-09-05 02:06] LABS: MANUAL DIFF FLAG NO
[2025-09-05 02:18] LABS: Hematocrit 39.4 % (37.0-47.0); Hemoglobin 14.4 g/dl (12.0-16.0); Imm Gran Abs Auto 0.04 X10*3/uL (0.00-0.03); Imm Gran Pct Auto 0.4 % (0.0-0.4); Lymphocytes Absolute Auto 3.3 X10*3/uL (1.2-4.9); Mean Corpuscular HGB Conc 36.5 g/dl (31.0-35.0); Mean Corpuscular Hemoglobin 32.1 pg (27.0-33.0); Mean Corpuscular Volume 87.9 fL (80.0-98.0); NRBC Abs Auto 0.000 X10*3/uL (0.0-0.012); NRBC Pct Auto 0.0 /100WBC (0.0-0.2); Platelet Count 372 X10*3/uL (160-400); Red Blood Count 4.48 X10*6/uL (4.20-5.50); White Blood Count 9.8 X10*3/uL (4.8-10.8)
[2025-09-05 02:28] LABS: Alanine Aminotransferase 14 U/L (0-31); Albumin Level 4.5 g/dL (3.5-5.0); Alkaline Phosphatase 55 U/L (39-117); Anion Gap 14 (12-20); Aspartate Amino Transferase 16 U/L (5-31); Blood Urea Nitrogen 12 mg/dL (9-16); Calcium 8.8 mg/dL (8.4-10.2); Carbon Dioxide 21 mmol/L (22-29); Chloride 110 mmol/L (96-108); Creatinine Clr Calc Pharmacy 121.1; Estimated Glomerular Filt Rate > 60; Magnesium 2.0 mg/dL (1.6-2.6); Potassium 4.0 mmol/L (3.3-5.1); Sodium 141 mmol/L (135-145); Total Protein 7.2 g/dL (6.5-8.0)
[2025-09-05 02:33] LABS: NT Pro B Type Natriuretic Pept < 15.8 pg/mL (<300); Troponin-I High Sensitivity < 2.7 ng/L (<3.5-17.0)
[2025-09-05] MEDS: Albuterol Sulfate (0.083%) 2.5 MG/3 ML VIAL.NEB 7.5 MG INHALE (02:34)
[2025-09-05 02:35] VITALS: PULSE 84; RESP 18
[2025-09-05] MEDS: diazePAM 10 MG/2 ML CARTRIDGE 2 MG IVPUSH (02:40)
[2025-09-05] MEDS: Magnesium Sulfate/H2O 2 GM/50 ML PIGGYBACK IV (02:41)
[2025-09-05 03:00] LABS: Resp Syncy Virus RNA Qual PCR NEGATIVE (Negative); SARS COV2 PCR INHOUSE NEGATIVE (Negative)
--- NOTE | 2025-09-05 03:05 | ED_ITS ---
HPI - General Adult General Chief complaint: General Medical Stated complaint: CP Time Seen by Provider: 09/05/25 02:02 Source: patient Limitations: no limitations History of Present Illness ED Provider: Norma Lacey PA-C HPI narrative: 29-year-old female with a history of asthma presents with viral syndrome x4 days. Associated cough with the wheezing, diarrhea, nasal congestion with dry mouth. Denies fever.Chest pain is primarily central, described as tightness, worse with breathing, moving and coughing. Patient does not use tobacco or marijuana. Related Data Previous Rx's ?Medication ?Instructions ?Recorded nitrofurantoin 100 mg PO Q12H 7 days #14 ca ps 04/23/23 monohydrate/macrocrystals 100 mg capsule (Macrobid) omeprazole 40 mg capsule,delayed 40 mg PO DAILY #20 ca ps 04/23/23 release cefuroxime axetil 500 mg tablet 500 mg PO BID 7 days # 14 tabs 07/11/23 ibuprofen 600 mg tablet 600 mg PO Q6H PRN fever or p ain 07/11/23 #30 tabs ibuprofen 600 mg tablet 600 mg PO Q6H PRN pain #14 t abs 10/13/23 meclizine 25 mg tablet 25 mg PO TID PRN dizziness # 14 tabs 10/13/23 azithromycin 250 mg tablet See Rx Instructions PO .COM PLEX #6 11/06/24 tabs prednisone 20 mg tablet 40 mg (2 x 20 mg) PO DAILY # 10 tabs 11/06/24 cephalexin 500 mg capsule 500 mg PO QID #28 caps 07/26 ketorolac 10 mg tablet 10 mg PO Q6H PRN pain #20 ta bs 09/05/25 prednisone 20 mg tablet 40 mg (2 x 20 mg) PO DAILY # 8 tabs 09/05/25 Allergies Allergy/AdvReac Type Severity Reaction Status Date / Time amoxicillin (AMOXICILLIN) Allergy Unknown RASH Verified 09/05/25 02:00 Penicillins (PENICILLINS) Allergy Unknown RASH Verified 09/05/25 02:00 clindamycin AdvReac Rash Verified 09/05/25 02:00 oxycodone (From Percocet) AdvReac Hallucinati Verified 09/05/25 02:00 ons Review of Systems 2 Review of Systems: Yes all other systems are reviewed and are negative Constitutional: Constitutional: Denies fatigue, Denies fever(s) and Reports malaise ENT: Reports nasal congestion Cardiovascular: Cardiovascular: Reports chest pain and Reports dyspnea Respiratory: Respiratory: Denies chest congestion, Reports cough, Reports dyspnea and Reports wheezing Gastrointestinal: Gastrointestinal: Denies abdominal pain, Reports diarrhea and Denies nausea Endocrine: Endocrine: Denies fatigue Allergic/Immunologic: Allergic/Immunologic: Reports wheezing PMF Past Medical History Attestation statement: The following information was validated with the patient. Social History Social History Alcohol intake: current Alcohol intake frequency: holidays/special occasions only Alcohol type: wine Smoked in Last 30 Days: No Use of substances other than those prescribed or required for medical reasons: No Advance Directives: No Advance Directives Information Provided: Yes Do you have a plan to hurt others: No Plan Patient : No Physical Exam ED Vital Signs: Vital Signs - 24 hr 09/05/25 01:58 09/05/25 02:35 Temperature 97 F Pulse Rate 84 84 Respiratory Rate 20 18 Blood Pressure 118/86 Pulse Oximetry 99 Oxygen Delivery Method Room Air BMI result Body Mass Index 36.1 Const Other: Alert well-appearing Orientation/consciousness: patient oriented x3 HENMT Other: Sounds congested Resp Other: Lungs clear to auscultation, no wheezing, the patient states she feels tight Effort & Inspection: normal respiratory effort Cardio Other: Normal peripheral perfusion Skin Other: Warm dry no rash Neuro General: patient oriented x3, gait normal, no focal motor deficits and CN's II- XI intact bilaterally Psych Other: Cooperative Medications Administered Generic Name Dose Route Start Last Admin Trade Name Freq PRN Reason Stop Dose Admin Sodium Chloride 1,000 mls @ 999 mls/hr 09/05/25 03:15 09/05/25 03:15 Ns IV 09/05/25 04:15 999 mls/hr .Q1H1M ALICIA Administration Discontinued Medications Generic Name Dose Route Start Last Admin Trade Name Freq PRN Reason Stop Dose Admin Albuterol Sulfate 7.5 mg 09/05/25 02:26 09/05/25 02:34 Albuterol Sulfate (0.083%) 2.5 Mg/3 Ml Vial.Neb INHALE 09/05/25 02:27 7.5 mg ONCE ONE Administration Diazepam 2 mg 09/05/25 02:26 09/05/25 02:40 Diazepam 10 Mg/2 Ml Cartridge IVPUSH 09/05/25 02:27 2 mg STAT STA Administration Magnesium Sulfate 2 gm in 50 mls @ 150 mls/hr 09/05/25 02:26 09/05/25 03:06 Magnesium Sulfate/H2o IV 09/05/25 02:45 Infused ONCE ONE Infusion Ketorolac Tromethamine 15 mg 09/05/25 02:26 09/05/25 02:40 Ketorolac Tromethamine 15 Mg/Ml Vial IVPUSH 09/05/25 02:27 15 mg ONCE ONE Administration Medical Decision Making Medical Decision Making [facility] Narrative: 29-year-old female with a history of asthma presents with viral syndrome x4 days. Associated chest pain, cough with the wheezing, diarrhea, nasal congestion with dry mouth. Denies fever. Chest pain is primarily central, described as tightness, worse with breathing, moving and coughing. Patient does not use tobacco or marijuana. Problem: Asthma History: Per patient I have considered the following differential diagnoses: Asthma exacerbation, bronchitis, pneumonia, viral syndrome, ACS, costochondritis, PE Plan: Patient here with asthma exacerbation secondary to underlying viral syndrome. Screening labs including viral panel and chest x-ray are in process. We will be giving a breathing treatment steroid Mag and Valium and Toradol for her chest wall pain. This is likely costochondritis given concurrent viral syndrome. ACS was considered, however the patient has no risk factors for coronary artery disease, troponin EKG obtained, her heart score is 0. Given pleuritic discomfort I did considered PE, however she is PERC negative I have independently reviewed the following tests: Labs: No leukocytosis, not anemic, no electrolyte abnormality, viral panel negative, EKG: Sinus rhythm with sinus arrhythmia, rate 80, no ischemic changes no ectopy QTC 401 Chest x-ray:Lungs are well inflated. Mediastinal contours, cardiac silhouette, pulmonary vasculature are within normal limits. No focal areas of consolidation. No rib fracture, pneumothorax, or pleural effusion. Impression: No acute finding. Differential Diagnosis Differential Diagnoses: The differential diagnosis associated with the presentation includes See medical decision-making Admission/Observation Consideration of admission/observation: Escalation of care including admission/observation considered Not applicable Lab Data [facility] Lab Attestation statement: I reviewed the patient's lab results. 09/05/25 02:09/05/25 02:01 Labs: Lab Results 09/05/25 09/05/25 Range/Units 02:01 02:15 WBC 9.8 (4.8-10.8) X10*3/uL RBC 4.48 (4.20-5.50) X10*6/uL Hgb 14.4 (12.0-16.0) g/dl Hct 39.4 (37.0-47.0) % MCV 87.9 (80.0-98.0) fL MCH 32.1 (27.0-33.0) pg MCHC 36.5 H (31.0-35.0) g/dl RDW 12.2 (11.0-16.0) % Plt Count 372 (160-400) X10*3/uL MPV 8.8 L (9.4-12.3) fL Immature Gran % (Auto) 0.4 (0.0-0.4) % Neut % (Auto) 54.4 (45-73) % Lymph % (Auto) 34.2 (20-40) % [place] % (Auto) 7.8 (2-11) % Eos % (Auto) 2.5 (0-4) % Baso % (Auto) 0.7 (0-2) % Lymph # (Auto) 3.3 (1.2-4.9) X10*3/uL [place] # (Auto) 0.8 (0.1-1.2) X10*3/uL Eos # (Auto) 0.2 (0.0-0.4) X10*3/uL Baso # (Auto) 0.1 (0.0-0.2) X10*3/uL Abs Immat Gran (auto) 0.04 H (0.00-0.03) X10*3/uL Absolute Neuts (auto) 5.3 (2.0-8.3) x10*3/uL Absolute Nucleated RBC 0.000 (0.0-0.012) X10*3/uL Nucleated RBC % (auto) 0.0 (0.0-0.2) /100WBC Sodium 141 (135-145) mmol/L Potassium 4.0 (3.3-5.1) mmol/L Chloride 110 H (96-108) mmol/L Carbon Dioxide 21 L (22-29) mmol/L Anion Gap 14 (12-20) BUN 12 (9-16) mg/dL Creatinine 0.62 (0.5-1.4) mg/dL Estim Creat Clear Calc 121.1 Estimated GFR > 60 Random Glucose 92 (60-115) mg/dL Calcium 8.8 D (8.4-10.2) mg/dL Magnesium 2.0 (1.6-2.6) mg/dL Total Bilirubin 0.4 (0.0-1.0) mg/dL AST 16 (5-31) U/L ALT 14 (0-31) U/L Alkaline Phosphatase 55 (39-117) U/L Troponin I High Sens < 2.7 (<3.5-17.0) ng/L NT-Pro-B Natriuret Pep < 15.8 (<300) pg/mL Total Protein 7.2 (6.5-8.0) g/dL Albumin 4.5 (3.5-5.0) g/dL Influenza Type A (PCR) NEGATIVE (Negative) Influenza Type B (PCR) NEGATIVE (Negative) RSV RNA Qual (PCR) NEGATIVE (Negative) SARS-CoV-2 RNA (RT-PCR) NEGATIVE (Negative) Independent Interpretation I performed an independent interpretation of an: EKG Radiology Impression Discussion of test interpretation with radiology: I have reviewed the radiologist's reading. Discharge Plan Discharge Clinical Impression: Asthma exacerbation, Acute viral syndrome, Chest wall pain Patient Disposition: Home, Self-Care Instructions: Asthma (ED), Viral Syndrome (ED), Chest Wall Pain (ED) Additional Instructions: All of your screening labs including a cardiac enzymes were normal. There were no concerning changes on the EKG in the chest x-ray is clear. You were tested for COVID, RSV and influenza, the viral panel was negative. You are being treated for an asthma exacerbation, secondary to yet another respiratory virus that has been circulating within the community. See home care instructions. Use your home inhaler as directed. Take the steroid taper as directed. You can use the ketorolac, take it with food, as needed for chest wall pain. Continue to follow up with your primary care provider as needed. Prescriptions: New prednisone 20 mg tablet 40 mg PO DAILY Qty: 8 0RF ketorolac 10 mg tablet 10 mg PO Q6H PRN (Reason: pain) Qty: 20 0RF Rx Instructions: maximum total duration of 5 days from all oral, intranasal, or parenteral formulations. The patient received an IV dose of Toradol here in the emergency room No Action nitrofurantoin monohyd/m-cryst [Macrobid] 100 mg capsule 100 mg PO Q12H 7 Days Qty: 14 0RF Rx Instructions: must administer with a meal/food omeprazole 40 mg capsule,delayed release(DR/EC) 40 mg PO DAILY Qty: 20 0RF ibuprofen 600 mg tablet 600 mg PO Q6H PRN (Reason: fever or pain) Qty: 30 0RF cefuroxime axetil 500 mg tablet 500 mg PO BID 7 Days Qty: 14 0RF azithromycin 250 mg tablet See Rx Instructions .ROUTE .COMPLEX Qty: 6 0RF Rx Instructions: For 250 mg dose pack: take 500 mg today (day 1), then 250 mg for 4 days (days 2-5) prednisone 20 mg tablet 40 mg PO DAILY Qty: 10 0RF meclizine 25 mg tablet 25 mg PO TID PRN (Reason: dizziness) Qty: 14 0RF ibuprofen 600 mg tablet 600 mg PO Q6H PRN (Reason: pain) Qty: 14 0RF cephalexin 500 mg capsule 500 mg PO QID Qty: 28 0RF Stand Alone Forms: Work/School Release Print Language: Bahraini
--- OUTSIDE RECORDS SUMMARY | 2025-09-05 03:25 | XMS_ITS | Clinical Summary ---
Author Organization [facility] Address [address] [place] [id number] Phone Care Team Providers Care Cnc Maintenance Mechanic Name Role Phone Lola Calabrese NP Primary [...] 2019 INFLUENZA VACCINE (#1) 2025 COVID-19 VACCINE (2024-2 6 season) 2025 HEPATITIS A VACCINES Aged Out [...] this topic Medical Devices Implanted Type Area Appliance Repairer Device Identifier Shelf Expiration Date Model / Serial / Lot Mesh Synthetic Abdominal Non Absorbable L15cm 8cmw Rectangle Polypropylene Bx/6ea - [id number] Implanted:Qty: 1 on 01/29/2018 by Padma Vasquez MD at [facility] STANDARD N/A: Umbilical [employer] / DIVISION OF J 08/31/2022 [id number] / / [id number] Insurance [facility] PART[facility] ACO [facility] Address: [address] [place] [address] Advance Directives For more information, please contact: [phone] (9AM - 5PM [facility], Wednesday-Wednesday) Documents on File Type Date Recorded Patient Drum Cleaner Expl anation Healthcare Proxy 02/01/2018 3:51 PM Care Teams Cnc Maintenance Mechanic Relationship Specialty Start Date End Date Lola Calabrese NP [address] [place] [address] PCP - General Nurse Practitioner 07/20/23 Additional Source Comments The information contained in this document represents components of the legal health record. It is not the complete legal health record.[facility]
--- OUTSIDE RECORDS SUMMARY | 2025-09-05 03:25 | XMS_ITS | Encounter Summary ---
Author Organization [facility] Address [address] [place] [id number] Phone Care Team Providers Care Greenbelt Name Role Phone Zaida Hua MD Primary Care P rovider Lola Calabrese NP Primary Care Provider Encounter Details Date Type Department Care Team (Late st Contact Info) Description 01/29/2018 Procedure Pass [facility], Ct Scan - [facility] [place] [address] [place] [address] Social History Tobacco Use Types Packs/Day Years [...] on filedocumented in this encounter Care Teams Greenbelt Relationship Specialty Start Date End Date Zaida Hua MD [address] [place] [address] PCP - General Adolescent Medicine 01/29/18 07/19/23 Lola Calabrese NP [address] [place] [address] PCP - General Nurse Practitioner 07/20/23 documented as of this encounter Additional Source Comments The information contained in this document represents components of the legal health record. It is not the complete legal health record.[facility]
--- OUTSIDE RECORDS SUMMARY | 2025-09-05 03:25 | XMS_ITS | Encounter Summary ---
Author Organization [facility] Address [address] [place] [id number] Phone Care Team Providers Care Geriatric Nurse Practitioner Name Role Phone Zaida Hua MD Primary Care P rovider Lola Calabrese NP Primary Care Provider [phone] Encounter Details Date Type Department Care Team (Late st Contact Info) Description 01/29/2018 Procedure Pass [place] Admitting Dept - Virtual Department [address] [place] [address] Social History Tobacco Use Types Packs/Day Years [...] on filedocumented in this encounter Care Teams Geriatric Nurse Practitioner Relationship Specialty Start Date End Date Zaida Hua MD [address] [place] [address] PCP - General Adolescent Medicine 01/29/18 07/19/23 Lola Calabrese NP [address] [place] [address] PCP - General Nurse Practitioner 07/20/23 documented as of this encounter Additional Source Comments The information contained in this document represents components of the legal health record. It is not the complete legal health record.[facility]
[2025-09-05 04:00] VITALS: BP 104/60; PULSE 98; RESP 14; TEMP 36.6; O2SAT 100
[2025-09-05 04:25] VITALS: BP 104/60; PULSE 98; RESP 14; TEMP 36.6; O2SAT 100
== END 2025-09-05 04:30 | disposition home or self-care (01) ==
PROVIDERS: Physician Assistant Medical; Emergency Provider Emergency Medicine; PCP Nurse Practitioner Family
DX: J45.901 Unspecified asthma with (acute) exacerbation (principal); B34.9 Viral infection, unspecified; R07.89 Other chest pain; R05.9 Cough, unspecified; R19.7 Diarrhea, unspecified; Z03.818 Encounter for observation for suspected exposure to other biological agents ruled out
CPT/HCPCS: 36415; 71045; 80053; 83735; 83880; 84484; 85025; 87637; 93005; 94640; 96361; 96365; 96375; 99284; 99285; J1885; J3360; J3475

== ENCOUNTER → 2025-09-05 01:51 | Outpatient (BNV) | payer OTHER, SELFPAY | PROVIDERS: Emergency Provider Emergency Medicine; PCP Nurse Practitioner Family; Visit Provider Internal Medicine Cardiovascular Disease | DX: R07.9 Chest pain, unspecified (principal) | CPT/HCPCS: 93010 ==

== ENCOUNTER → 2025-09-05 02:02 | Outpatient (BNV) | payer OTHER, SELFPAY | PROVIDERS: PCP Nurse Practitioner Family; Visit Provider Radiology Diagnostic Radiology | DX: R07.9 Chest pain, unspecified (principal) | CPT/HCPCS: 71045 ==

== ENCOUNTER 2025-10-05 21:24 | Emergency (ER) | payer SELFPAY ==
--- NOTE | ~2025-10-05 | XR_ITS ---
CLINICAL HISTORY: sob 1 view chest x-ray Comparison: CR - XR CHEST 1V - 09/05/25 02:14 EST Findings: No consolidation or effusion. Normal size heart. No acute fracture. IMPRESSION: 1. No acute findings. This document has been electronically signed by: Mart Kirk MD on 10/05/2025 22:12:54
[2025-10-05 21:31] VITALS: BP 117/69; PULSE 100; RESP 20; TEMP 36.7; O2SAT 99; BMI 35.7
[2025-10-05 23:26] LABS: Resp Syncy Virus RNA Qual PCR NEGATIVE (Negative); SARS COV2 PCR INHOUSE NEGATIVE (Negative)
--- OUTSIDE RECORDS SUMMARY | 2025-10-05 23:50 | XMS_ITS | Encounter Summary ---
Author Organization [facility] Address [address] [place] [address] Phone Care Team Providers Care Toolman Name Role Phone Zaida Hua MD Primary Care P rovider Lola Calabrese NP Primary Care Provider [phone] Encounter Details Date Type Department Care Team (Late st Contact Info) Description 01/29/2018 Procedure Pass [facility], Ct Scan - [facility] [address] [place] [address] Social History Tobacco Use Types Packs/Day Years [...] on filedocumented in this encounter Care Teams Toolman Relationship Specialty Start Date End Date Zaida Hua MD [address] [place] [address] PCP - General Adolescent Medicine 01/29/18 07/19/23 Lola Calabrese NP [address] [place] [address] PCP - General Nurse Practitioner 07/20/23 documented as of this encounter Additional Source Comments The information contained in this document represents components of the legal health record. It is not the complete legal health record.[facility]
--- OUTSIDE RECORDS SUMMARY | 2025-10-05 23:50 | XMS_ITS | Encounter Summary ---
Author Organization [facility] Address [address] [place] [address] Phone Care Team Providers Care Printed Forms Proofreader Name Role Phone Zaida Hua MD Primary Care P rovider Lola Calabrese NP Primary Care Provider Encounter Details Date Type Department Care Team (Late st Contact Info) Description 01/29/2018 Procedure Pass [place] Admitting Dept - Virtual Department [address] [place] [address] Social History Tobacco Use Types Packs/Day Years [...] on filedocumented in this encounter Care Teams Printed Forms Proofreader Relationship Specialty Start Date End Date Zaida Hua MD [address] [place] [address] PCP - General Adolescent Medicine 01/29/18 07/19/23 Lola Calabrese NP [address] [place] [address] PCP - General Nurse Practitioner 07/20/23 documented as of this encounter Additional Source Comments The information contained in this document represents components of the legal health record. It is not the complete legal health record.[facility]
--- OUTSIDE RECORDS SUMMARY | 2025-10-05 23:50 | XMS_ITS | Clinical Summary ---
Author Organization [facility] Address [address] [place] [address] Phone Care Team Providers Care Bariatric Program Coordinator Name Role Phone Lola Calabrese NP Primary Care Provider [phone] Allergies Active Allergy Reactions Criticality Noted Date [...] this topic Medical Devices Implanted Type Area Lock Up Worker Device Identifier Shelf Expiration Date Model / Serial / Lot Mesh Synthetic Abdominal Non Absorbable L15cm 8cmw Rectangle Polypropylene Bx/6ea - [id number] Implanted:Qty: 1 on 01/29/2018 by Padma Vasquez MD at [facility] STANDARD N/A: Umbilical [employer] / DIVISION OF J 08/31/2022 [id number] / / [id number] Insurance [facility] Address: [address] [place] [address] Advance Directives For more information, please contact: [phone] (9AM - 5PM [facility], Wednesday-Wednesday) Documents on File Type Date Recorded Patient Electronic Musical Instrument Repairer Expl anation Healthcare Proxy 02/01/2018 3:51 PM Care Teams Bariatric Program Coordinator Relationship Specialty Start Date End Date Lola Calabrese NP [address] [place] [address] PCP - General Nurse Practitioner 07/20/23 Additional Source Comments The information contained in this document represents components of the legal health record. It is not the complete legal health record.[facility]
--- NOTE | 2025-10-06 01:07 | ED_ITS ---
HPI - URI/Sore Throat General Chief Complaint: Upper Respiratory Symptoms Stated Complaint: Asthma Time Seen by Provider: 10/06/25 00:13 Source: patient Mode of arrival: ambulatory Limitations: no limitations History of Present Illness ED Provider: Dr. Mely Lopes HPI Narrative: Patient comes to the emergency room complaining of nasal congestion, asthma exacerbations, sore throat, dry cough, generalized malaise for 3 days. Patient denies fever or chills. Patient states that she has been using her inhaler a bit more frequent than usual Related Data Previous Rx's ?Medication ?Instructions ?Recorded nitrofurantoin 100 mg PO Q12H 7 days #14 ca ps 04/23/23 monohydrate/macrocrystals 100 mg capsule (Macrobid) omeprazole 40 mg capsule,delayed 40 mg PO DAILY #20 ca ps 04/23/23 release cefuroxime axetil 500 mg tablet 500 mg PO BID 7 days # 14 tabs 07/11/23 ibuprofen 600 mg tablet 600 mg PO Q6H PRN fever or p ain 07/11/23 #30 tabs ibuprofen 600 mg tablet 600 mg PO Q6H PRN pain #14 t abs 10/13/23 meclizine 25 mg tablet 25 mg PO TID PRN dizziness # 14 tabs 10/13/23 azithromycin 250 mg tablet See Rx Instructions PO .COM PLEX #6 11/06/24 tabs prednisone 20 mg tablet 40 mg (2 x 20 mg) PO DAILY # 10 tabs 11/06/24 cephalexin 500 mg capsule 500 mg PO QID #28 caps 07/26 ketorolac 10 mg tablet 10 mg PO Q6H PRN pain #20 ta bs 09/05/25 prednisone 20 mg tablet 40 mg (2 x 20 mg) PO DAILY # 8 tabs 09/05/25 doxylamin 12.5 mg-PSE 10 mg-DM 20 1 packet PO Q4H PRN flu symptoms 10/06/25 mg-acetaminophen 650 mg oral pwdr #6 ea pk (Farrah-[place] Plus Cold-Flu) prednisone 50 mg tablet 50 mg PO DAILY #4 tabs 10/06 Allergies Allergy/AdvReac Type Severity Reaction Status Date / Time amoxicillin (AMOXICILLIN) Allergy Unknown RASH Verified 10/05/25 21:33 Penicillins (PENICILLINS) Allergy Unknown RASH Verified 10/05/25 21:33 clindamycin AdvReac Rash Verified 10/05/25 21:33 oxycodone (From Percocet) AdvReac Hallucinati Verified 10/05/25 21:33 ons Review of Systems Review of Systems: Constitutional : No Weight loss, No Fever, No Chills, No Night Sweats, No Fatigue, No Malaise ENT/Mouth : No Hearing loss, complaining of bilateral Ear Pain, complaining of Nasal Congestion, No Sinus Pain, No Hoarseness, No sore throat, No Rhinorrhea, No Swallowing Difficulty Eyes: No Eye Pain, No Swelling, No Redness, No Foreign Body, No Discharge, No Vision Changes Cardiovascular : No Chest Pain, No SOB, No Dyspnea on Exertion, No Orthopnea, No Edema, No Palpitations Respiratory : Complaining of cough, intermittent wheezing Gastrointestinal : No Nausea, No Vomiting, No Diarrhea, No Constipation, No abdominal Pain, No Hematochezia, No Melena Genitourinary : no irregular bleeding, No Dysuria, No Urinary Frequency, No Hematuria, No Urinary Incontinence, No Urgency, No Flank Pain, No Urinary Flow Changes, No Hesitancy Musculoskeletal : No joint pain, No Myalgias, No Joint Swelling Skin : No Skin Lesions, No rash Neuro : No Weakness, No Numbness, No Paresthesias, No Loss of Consciousness, No Dizziness, No Headache Psych : No Anxiety/Panic, No Depression, No SI/HI/AH/VH, No Social Issues, Heme/Lymph: No Bruising, No Bleeding,No Lymphadenopathy Endocrine : No Polyuria, No Polydipsia, No Temperature Intolerance [facility] Past Medical History Medical History (Updated 10/06/25 @ 01:09 by Mely Lopes MD) Asthma Social History Social History Alcohol intake: current Alcohol intake frequency: holidays/special occasions only Alcohol type: wine Advance Directives: No Advance Directives Information Provided: No Do you have a plan to hurt others: No Plan Physical Exam Exam: Exam: Appearance: Alert. Oriented X3. No acute distress. Eyes: Pupils equal, round and reactive to light. ENT: Pharynx normal. Patient does have nasal congestion Neck: Normal inspection. Neck supple. No lymph nodes noted. No crepitus CVS: Normal heart rate and rhythm. Pulses normal. Normal S1 and S2 Respiratory: No respiratory distress. Breath sounds normal. No Wheezing. No rales Abdomen: Soft and nontender. No rigidity. No distention. Skin: Skin warm and dry. Normal skin color. Normal skin turgor. Extremities: No lower extremity edema. No Lacerations. No Rash Neuro: Oriented X 3. No motor deficit. No sensory deficit. Moving all extremities. No slurred speech. CN 2 through 12 grossly intact Psych: calm, cooperative, normal affect Vital Signs: Vital Signs: Last Vital Signs Temp 98.0 F 10/05/25 21:31 Pulse 100 10/05/25 21:31 Resp 20 10/05/25 21:31 BP 117/69 10/05/25 21:31 Pulse Ox 99 10/05/25 21:31 O2 Del Method Room Air 10/05/25 21:31 BMI result Body Mass Index 35.7 Medical Decision Making Medical Decision Making [facility] Narrative: My interpretation of labs: Serology is negative for influenza a, influenza B, RSV and COVID Chest x-ray does not show any acute abnormality Lab Data [facility] Lab Attestation statement: I reviewed the patient's lab results. Labs: Lab Results 10/05/25 Range/Units 22:46 Influenza Type A (PCR) NEGATIVE (Negative) Influenza Type B (PCR) NEGATIVE (Negative) RSV RNA Qual (PCR) NEGATIVE (Negative) SARS-CoV-2 RNA (RT-PCR) NEGATIVE (Negative) Independent Interpretation I performed an independent interpretation of an: Plain X-Ray Radiology Impression Discussion of test interpretation with radiology: I have reviewed the radiologist's reading. Radiologist Impression: No consolidation or effusion. Normal size heart. No acute fracture. Discharge Plan Discharge Clinical Impression: Upper respiratory infection, Asthma Patient Disposition: Home, Self-Care Instructions: Asthma (ED), Viral Syndrome (ED) Additional Instructions: Please follow-up with your primary care physician tomorrow. If you have any worsening or new symptoms, please return to the emergency room or call 911 Prescriptions: New prednisone 50 mg tablet 50 mg PO DAILY Qty: 4 0RF [place] Plus Cold-Flu 12.5-10-20-650 mg powder in packet 1 packet PO Q4H PRN (Reason: flu symptoms) Qty: 6 1RF Rx Instructions: DNExceed 5 doses/24h No Action nitrofurantoin monohyd/m-cryst [Macrobid] 100 mg capsule 100 mg PO Q12H 7 Days Qty: 14 0RF Rx Instructions: must administer with a meal/food omeprazole 40 mg capsule,delayed release(DR/EC) 40 mg PO DAILY Qty: 20 0RF ibuprofen 600 mg tablet 600 mg PO Q6H PRN (Reason: fever or pain) Qty: 30 0RF cefuroxime axetil 500 mg tablet 500 mg PO BID 7 Days Qty: 14 0RF azithromycin 250 mg tablet See Rx Instructions .ROUTE .COMPLEX Qty: 6 0RF Rx Instructions: For 250 mg dose pack: take 500 mg today (day 1), then 250 mg for 4 days (days 2-5) prednisone 20 mg tablet 40 mg PO DAILY Qty: 10 0RF prednisone 20 mg tablet 40 mg PO DAILY Qty: 8 0RF ketorolac 10 mg tablet 10 mg PO Q6H PRN (Reason: pain) Qty: 20 0RF Rx Instructions: maximum total duration of 5 days from all oral, intranasal, or parenteral formulations. The patient received an IV dose of Toradol here in the emergency room meclizine 25 mg tablet 25 mg PO TID PRN (Reason: dizziness) Qty: 14 0RF ibuprofen 600 mg tablet 600 mg PO Q6H PRN (Reason: pain) Qty: 14 0RF cephalexin 500 mg capsule 500 mg PO QID Qty: 28 0RF Stand Alone Forms: Work/School Release Interventions: ED Discharge Assessment Last Done: 10/06/25 01:08 Print Language: [place] Zealander
[2025-10-06 01:08] VITALS: BP 117/69; PULSE 100; RESP 20; TEMP 36.7; O2SAT 99
== END 2025-10-06 01:08 | disposition home or self-care (01) ==
PROVIDERS: Emergency Provider Emergency Medicine; PCP Nurse Practitioner Family
DX: J06.9 Acute upper respiratory infection, unspecified (principal); J45.909 Unspecified asthma, uncomplicated; J02.9 Acute pharyngitis, unspecified; R09.81 Nasal congestion; R05.9 Cough, unspecified; R06.02 Shortness of breath; Z03.818 Encounter for observation for suspected exposure to other biological agents ruled out
CPT/HCPCS: 71045; 87637; 99282; 99283

== ENCOUNTER → 2025-10-05 21:45 | Outpatient (BNV) | payer OTHER, SELFPAY | PROVIDERS: PCP Nurse Practitioner Family; Visit Provider Radiology Diagnostic Radiology | DX: R06.02 Shortness of breath (principal) | CPT/HCPCS: 71045 ==